=== PATIENT | female | born 1995 | race Caucasian/White ===

== ENCOUNTER → 2017-09-11 17:58 | Outpatient (CLI) | payer BC, MEDICAID, SELFPAY ==
[2017-09-15 18:44] LABS: Neisseria gonorrhoeae, NAA Negative (Negative)
== END ==
PROVIDERS: PCP Family Medicine; Visit Provider Nurse Practitioner Obstetrics & Gynecology
DX: Z72.51 High risk heterosexual behavior (principal)
CPT/HCPCS: 87491; 87591

== ENCOUNTER → 2017-10-01 15:17 | Outpatient (CLI) | payer BC, MEDICAID, SELFPAY ==
[2017-10-01 15:42] LABS: Basophils % 0.4 % (0.1-2.0); Eosinophils # 0.3 K/mm3 (0.0-0.4); Hematocrit 36.1 % (37.0-47.0); Lymphocytes # 2.3 K/mm3 (0.7-4.5); Mean Corpuscular HGB Conc 33.3 g/dL (31.8-35.4); Mean Corpuscular Hemoglobin 29.3 pg (27.0-31.2); Mean Corpuscular Volume 88.1 fl (81-99); Mean Platelet Volume 8.8 fl (7.4-10.4); Monocytes # 0.4 K/mm3 (0.1-1.0); Monocytes % 3.9 % (1.7-9.3); Neutrophils % 71.8 % (37.0-80.0); Platelet Count 259 K/mm3 (142-424); Red Cell Distribution Width 15.6 % (11.5-17.5); White Blood Count 11.2 K/mm3 (4.5-13.0)
[2017-10-01 17:21] LABS: Free Thyroxine Index 2.8 ug/dL (5.93-13.13); T4 (Thyroxine) 8.9 ug/dl (5.4-10.6); Thyroid Stimulating Hormone 1.65 uIU/ml (0.516-4.13); Triiodothryronine (T3) Uptake 32 % (31-39)
[2017-10-03 06:22] LABS: Hepatitis B Surface Antigen Negative (Negative); Hepatitis C Antibody <0.1 s/co ratio (0.0-0.9)
[2017-10-03 10:17] LABS: HIV Screen 4th Generation wRfx Non Reactive (Non Reactive)
[2017-10-03 10:32] LABS: Rapid Plasma Reagin Ab Titer Non Reactive (NonRea<1:1); Rubella Antibodies, IgG 4.27 index (Immune >0.99)
== END ==
PROVIDERS: PCP Family Medicine; Visit Provider Nurse Practitioner Obstetrics & Gynecology
DX: Z34.90 Encounter for supervision of normal pregnancy, unspecified, unspecified trimester (principal)
CPT/HCPCS: 36415; 84436; 84443; 84479; 85025; 86592; 86703; 86762; 86850; 87340; 87380; G0432

== ENCOUNTER → 2017-10-10 13:07 | Outpatient (CLI) | payer BC, MEDICAID, SELFPAY ==
--- NOTE | 2017-10-10 13:11 | US_ITS ---
US OB transvaginal HISTORY: ITS.REASON: US OB- DATES ORDERING PHYSICIAN: Aiden Chery MD PATIENT AGE: 21 years COMPARISON: None FINDINGS: An intrauterine gestational sac is present with a pole with a crown-rump length of 2.07cm correlating to gestational age of 8w5d. heart tones are present with an FHR of 178bpm's. Yolk sac is noted. The amnion and chorion have not yet fused. Adnexa: There is a 1 cm right ovarian cyst and small bilateral follicles. IMPRESSION: Live intrauterine gestation at 8 weeks 5 days as described above. Estimated due date by ultrasound is 05/17/2018
== END ==
PROVIDERS: Visit Provider Nurse Practitioner Obstetrics & Gynecology
DX: O26.841 Uterine size-date discrepancy, first trimester (principal)
CPT/HCPCS: 76830

== ENCOUNTER 2017-12-26 18:11 | Outpatient (CLI) | payer BC, MEDICAID, SELFPAY ==
[2017-12-26 18:35] LABS: Microscopic, Urine URINE MICROSCOPIC (MICROSCOPIC)
[2017-12-26 18:38] VITALS: BP 107/58; PULSE 88; RESP 18; TEMP 36.8; O2SAT 93
[2017-12-26 18:38] LABS: Appearance,Urine CLOUDY (Clear); Blood, Urine 3+ (Negative); Color,Urine AMBER (Yellow); Glucose,Urine (UA) Negative (Negative); Ketones,Urine Negative (Negative); Leukocyte Esterase,Urine Negative (Negative); Nitrate,Urine POSITIVE (Negative); PH,Urine 6.5 (5.0-8.5); Protein,Urine 2+ (Negative); Specific Gravity, Urine 1.025 (1.005-1.030)
[2017-12-26 18:43] LABS: Bilirubin,Urine Negative (Negative)
[2017-12-26 18:55] LABS: Bacteria,Urine 4+ /lpf; RBC,Urine Occasional #/hpf (0-3); WBC,Urine TNTC #/hpf (0-3)
== END 2017-12-26 19:40 | disposition home or self-care (01) ==
LOC: OBOUT 18:15 → OB 18:16
PROVIDERS: PCP Nurse Practitioner Obstetrics & Gynecology; Visit Provider Obstetrics & Gynecology
DX: O26.92 Pregnancy related conditions, unspecified, second trimester (principal); Z3A.19 19 weeks gestation of pregnancy; R10.31 Right lower quadrant pain
CPT/HCPCS: 81001; 87086; 87088; 87186

== ENCOUNTER → 2017-12-31 13:02 | Outpatient (CLI) | payer BC, MEDICAID, SELFPAY ==
--- NOTE | 2017-12-31 13:05 | US_ITS ---
US OB /maternal detail: INDICATION: ITS.REASON: US OB Complete ORDERING PHYSICIAN: Aiden Chery MD PATIENT AGE: 22 years TECHNIQUE: ultrasound transabdominal scanning. COMPARISON: No previous relevant studies. FINDINGS: Single viable intrauterine gestation. Breech position. Placenta: Anterior placenta grade 1. There is average amount fluid. The cervix appears satisfactory. Closed and measuring 3 cm in length. Complete survey performed and was unremarkable on the submitted images as in PACS. No discrete anomalies identified on survey imaging by technologist. Active fetus. Three-vessel cord with satisfactory umbilical cord insertion. 4- chamber heart noted. Survey of brain & ventricles unremarkable. Face and neck survey unremarkable. Diaphragm and chest views unremarkable. Abdomen: Both kidneys noted and unremarkable. Stomach noted and satisfactory. Spine: Survey of the spine satisfactory with no anomalies identified nor imaged. Both arms and legs noted. Amniotic Fluid: Adequate. Maternal adnexa: No significant findings. Measurements: Average ultrasound age 20w2d. Gestational Age 20w3d. Estimated due date by ultrasound age 1205/18/2018. Estimated weight 345 grams. BPD = 20w2d OFD = 20w6d HC = 19w6d AC = 20w4d FL = 20w1d Growth Percentile= 38% based on established due date of 05/17/2018 Heart Rate = 139 bpm Cerebellum = 21w3d Humerus = 21w2d HC/AC is 1.13 (1.09-1.26). CI is 75% (70-86%). FL/BPD is 69%. FL/AC is 21%. IMPRESSION: There is a single live intrauterine gestation in breech presentation. Average ultrasound age is 20 weeks and 2 days with an estimated due date of 05/18/2018. No obvious anomalies. Please see above for detail.
== END ==
PROVIDERS: Visit Provider Nurse Practitioner Obstetrics & Gynecology
DX: O26.841 Uterine size-date discrepancy, first trimester (principal)
CPT/HCPCS: 76811

== ENCOUNTER → 2018-04-14 16:32 | Outpatient (CLI) | payer BC, MEDICAID, SELFPAY | LOC: LAB 16:32 → LAB.DROPOF 04-15 09:16 | PROVIDERS: Visit Provider Nurse Practitioner Obstetrics & Gynecology | DX: Z34.90 Encounter for supervision of normal pregnancy, unspecified, unspecified trimester (principal) | CPT/HCPCS: 86403 ==

== ENCOUNTER 2018-04-28 06:38 | Outpatient (CLI) | payer BC, MEDICAID, SELFPAY ==
[2018-04-28 06:47] VITALS: BP 115/75; PULSE 105; RESP 18; TEMP 36.6; O2SAT 95; BMI 29.4
[2018-04-28 06:50] VITALS: BMI 29.9
[2018-04-28 07:02] LABS: Microscopic, Urine URINE MICROSCOPIC (MICROSCOPIC)
[2018-04-28 07:09] LABS: Appearance,Urine CLEAR (Clear); Bilirubin,Urine Negative (Negative); Blood, Urine Negative (Negative); Color,Urine YELLOW (Yellow); Glucose,Urine (UA) Negative (Negative); Ketones,Urine TRACE (Negative); Leukocyte Esterase,Urine TRACE (Negative); Nitrate,Urine Negative (Negative); PH,Urine 6.5 (5.0-8.5); Protein,Urine Negative (Negative); Urobilinogen,Urine 0.2 EU/dl (0.2)
[2018-04-28 07:20] LABS: Bacteria,Urine 1+ /lpf; Mucus,Urine 1+ /lpf
--- NOTE | 2018-04-28 09:12 | P.PN_ITS ---
Internal Medicine - PN: Subj *Date: 04/28/18 *Time: 09:11 Interval history: She is a 22-year-old 2 para 1 who is 37 weeks gestational age. She came in having regular contractions. She was placed on the monitor addressed and her contractions have now settled. She is to 3 cm 75% Station -2. Nonstress test is reactive. Her contractions have now stopped. She is resting in bed. Exam Vital signs and Labs for Last 24 Hours: Temp Pulse Resp BP Pulse Ox 97.8 F 105 H 18 115/75 95 04/28/18 06:47 04/28/18 06:47 04/28/18 06:47 04/28/18 06:47 04/28/18 06:47 Laboratory Results - last 24 hr 04/28/18 06:50: Urine Color Yellow, Urine Appearance Clear, Urine pH 6.5, Ur Specific [place] 1.020, Urine Protein Negative, Urine Glucose (UA) Negative, Urine Ketones Trace, Urine Blood Negative, Urine Nitrate Negative, Urine Bilirubin Negative, Urine Urobilinogen 0.2, Ur Leukocyte Esterase Trace, Urine RBC None, Urine WBC 3-5, Ur Squamous Epith Cells 5-10, Urine Bacteria 1+, Urine Mucus 1+ I & O for Last 24 hours: Intake & Output 04/25/18 04/26/18 04/27/18 04/28/18 11:59 11:59 11:59 11:59 Weight 164 lb - Constitutional no acute distress - *Routine HEENT Exam Head: Present: normocephalic Eye: Present: EOMI, PERRL ENT: Present: mucous membranes moist Assessment and Plan (1) False labor after 37 completed weeks of gestation Current visit: Yes Status: Acute Category: Medical Code(s): O47.1 - False labor at or after 37 completed weeks of gestation - Assessment and plan all Dx Assessment and Plan for all problems:: She was having regular contractions but she has now settled. We will plan to send her home. She will follow-up with me in 3 days time for her regular appointment.
== END 2018-04-28 09:16 | disposition home or self-care (01) ==
LOC: OBOUT 06:41 → OB 06:41
PROVIDERS: Referring Provider Nurse Practitioner Obstetrics & Gynecology; Visit Provider Obstetrics & Gynecology
DX: O47.03 False labor before 37 completed weeks of gestation, third trimester (principal); Z3A.37 37 weeks gestation of pregnancy
CPT/HCPCS: 59025; 81001

== ENCOUNTER 2018-05-06 13:03 | Inpatient (IN) ==
[2018-05-06 14:48] LABS: Basophils % 0.2 % (0.1-2.0); Eosinophils # 0.1 K/mm3 (0.0-0.4); Eosinophils % 0.5 % (0.1-12.0); Lymphocytes # 1.5 K/mm3 (0.7-4.5); Lymphocytes % 10.8 % (10-50); Mean Corpuscular HGB Conc 33.4 g/dL (31.8-35.4); Mean Corpuscular Hemoglobin 30.1 pg (27.0-31.2); Mean Corpuscular Volume 90.1 fl (81-99); Mean Platelet Volume 9.5 fl (7.4-10.4); Monocytes # 0.6 K/mm3 (0.1-1.0); Monocytes % 4.6 % (1.7-9.3); Neutrophils # 11.6 K/mm3 (1.8-7.8); Neutrophils % 83.9 % (37.0-80.0); Platelet Count 200 K/mm3 (142-424); Red Blood Count 3.67 M/mm3 (4.20-5.40); Red Cell Distribution Width 16.5 % (11.5-17.5); White Blood Count 13.9 K/mm3 (4.8-10.8)
--- NOTE | 2018-05-06 15:11 | History & Physical Report ---
OB - H&P: HPI Antepartum - History of Present Illness Chief complaint: Contraction History of present illness: She is a 22-year-old 2 para 1 who was 38+ weeks gestational age. She came in having a few contractions. She rapidly progressed to 6 cm and was admitted. - History of Present Criteria for establishing EDC:: LMP confirmed by 1st trimester US care: good care Ultrasounds: normal 1st trimester US, normal mid trimester US Obstetrical complications: none Medical complications: none - Labs Blood type: A (+) positive Rubella: nonimmune RPR/VDRL: nonreactive GBS status: positive HBsAG: negative HMH History I have reviewed the patient's past medical history: Yes Medical History: Reports:: Anxiety, Asthma, Depression Denies:: Diabetes Mellitus Type 1, Hypertension, Seizures Other Surgeries: No: Amputation: No Fractures: No - *Social History Smoking Status: Current every day smoker Tobacco Type: cigarettes Alcohol Intake: never Substance Use Type: denies use - Psychiatric History Pschychiatric History:: Reports:: Anxiety, Depression *Family Hx:: Cancer, Diabetes, Hypertension, Hyperlipidemia, Asthma Para: 1 Review of Systems - Review of Systems Review of systems:: pertinent systems reviewed and negative unless documented below Meds Home Medications Medication Instructions Recorded Confirmed Type pediatric multivitamin no.7-folic 100 mcg PO DAILY 10/01/17 05/06/18 History acid 100 mcg chewable tablet Ferrous Sulfate 325 mg PO DAILY 12/26/17 05/06/18 History raNITIdine HCl [Ranitidine HCl] 150 mg PO DAILY 05/06/18 05/06/18 History Allergies Allergy/AdvReac Type Severity Reaction Status Date / Time No Known Allergies Allergy Verified 05/01/18 11:09 OB - H&P: Exam - Physical Exam Vital signs: Temp Pulse Resp BP Pulse Ox 98.2 F 90 18 117/74 97 05/06/18 13:10 05/06/18 13:10 05/06/18 13:10 05/06/18 13:10 05/06/18 13:10 - Constitutional no acute distress - Routine HEENT Exam Head: Present: normocephalic Eye: Present: EOMI, PERRL ENT: Present: mucous membranes moist - Routine Neck Exam Present: supple, full ROM - Routine Respiratory Exam Absent: accessory muscle use (good air entry bilaterally), respiratory distress, wheezes, crackles - Routine Cardiovascular Exam Present: RRR. Absent: murmur - Routine Abdominal Exam Present: soft, normoactive bowel sounds. Absent: tenderness, distended, guarding - Routine Rectal Exam Patient deferred: visual exam, digital exam - Routine Exam Patient deferred: external exam, groin exam, perineal exam - Routine Extremities Exam Present: full ROM. Absent: cyanosis, edema - Routine Skin Exam Present: intact. Absent: cyanosis - Routine Neurological Exam Present: alert, oriented X3 - Routine Psychiatric Exam Present: normal affect OB - Results - Labs Labs: Short CBC 05/06/18 Range/Units 14:30 WBC 13.9 H (4.8-10.8) K/mm3 Hgb 11.0 L (12.2-16.2) g/dL Hct 33.0 L (37.0-47.0) % Plt Count 200 (142-424) K/mm3 OB - A/P Antepartum (1) Normal delivery at term Current visit: Yes Status: Acute - Additional Plan Planning to breastfeed?: Yes Plan: expectant management Additional Information:: She is in active labor and is admitted for delivery. She is group B Streptococcus positive and will receive IV antibiotics
--- NOTE | 2018-05-06 15:14 | Procedure Note ---
- Delivery Note Delivery Date:: 05/06/18 Delivery Time:: 14:57 Anesthesia Type: None Was labor medically induced?: No Induction method: none Gestational age (weeks): 38 delivered prior to 39 weeks?: Yes Justification for early elective delivery:: Active Labor Infant Gender: Female at 1 minute: 4 at 5 minutes: 7 Delivery Procedure:: She arrived in early labor and rapidly progressed to 6 cm. She had her membranes ruptured at full dilation and progressed rapidly. She had copious clear fluid. She delivered spontaneously a liveborn female child at 2:57 PM in the afternoon of May 06, 2018. On deliver the head the rest the infant's body delivered rapidly atraumatically. The oropharynx and nasopharynx were bulb suctioned. The cord was clamped and cut and the was then handed off to the nurses who assigned Apgars of 4 at 1 minute and 7 at 5 minutes. We then obtained cord blood as well as cord pH. She received IV oxytocin using gentle traction on the cord and counter traction on the fundus I was able to easily deliver the placenta intact. He had a normal three-vessel cord but the cord was very short. It was only about a foot long. There were no perineal or vaginal lacerations. She has a positive blood, she is rubella nonimmune and was group A streptococcus positive. She did receive 1 dose of IV antibiotics about 30 minutes before the delivery. She plans to bottlefeed. Her mobility architect is Dr. Latham. Renita mated blood loss was approximately 400 cc. Placental Delivery Description: Spontaneous
[2018-05-07 03:38] VITALS: BP 113/54
[2018-05-07 07:36] LABS: Hematocrit 31.4 % (37.0-47.0); Hemoglobin 10.4 g/dL (12.2-16.2)
--- NOTE | 2018-05-07 08:16 | Progress Note ---
Internal Medicine - PN: Subj *Date: 05/07/18 *Time: 08:15 Interval history: She is doing well this morning. She is eating and ambulating. She is bottlefeeding. Her lochia is normal. Exam Vital signs and Labs for Last 24 Hours: Temp Pulse Resp BP Pulse Ox 99.1 F 74 18 113/54 L 98 05/06/18 20:49 05/06/18 20:49 05/06/18 20:49 05/06/18 20:49 05/06/18 20:49 Laboratory Results - last 24 hr 05/06/18 14:30: WBC 13.9 H, RBC 3.67 L, Hgb 11.0 L, Hct 33.0 L, MCV 90.1, MCH 30.1, MCHC 33.4, RDW 16.5, Plt Count 200, MPV 9.5, Neut % (Auto) 83.9 H, Lymph % (Auto) 10.8, [place] % (Auto) 4.6, Eos % (Auto) 0.5, Baso % (Auto) 0.2, Neut # (Auto) 11.6 H, Lymph # (Auto) 1.5, [place] # (Auto) 0.6, Eos # (Auto) 0.1, Baso # (Auto) 0.0 05/06/18 14:30: Blood Type A Positive, Antibody Screen Negative 05/06/18 15:09: Cord ABG pH 7.37 05/07/18 06:44: Hgb 10.4 L, Hct 31.4 L I & O for Last 24 hours: Intake & Output 05/04/18 05/05/18 05/06/18 05/07/18 11:59 11:59 11:59 11:59 Weight 161 lb - Constitutional no acute distress Assessment and Plan (1) Normal delivery at term Current visit: Yes Status: Acute Category: Medical Code(s): O80 - Encounter for full-term uncomplicated delivery - Assessment and plan all Dx Assessment and Plan for all problems:: She continues to do very well. We will plan to send her home in the morning.
--- NOTE | 2018-05-08 08:12 | Discharge Summary ---
General - General Admission date:: 05/06/18 Discharge date: 05/08/18 HPI HPI: She is a 22-year-old 2 now para 2 who is 38 and 3 weeks gestational age. She arrived in active labor and was found to be 2-3 cm dilated. She rapidly rest to 6 cm and then full dilation. Hospital Course Hospital Course: She rapidly progressed to full dilation and delivered spontaneously a liveborn female child at 2:57 PM in the afternoon of May 06, 2018. The baby was a liveborn female child weighing 5 pounds 9 ounces 18-1/4 inches long. She had Apgars of 4 at 1 minute and 7 at 5 minutes. She had a very short cord. She has done well and has remained afebrile throughout her hospitalization. She is eating and drinking and ambulating. She is bottlefeeding. Her lochia is normal. She has a positive blood, she is rubella nonimmune and was group B streptococcus positive. She did receive 1 dose of IV antibiotics prior to delivery. The baby is doing well. She will receive MMR prior to discharge. She is discharged home to follow-up with me in approximately 2 weeks time. She will continue with her vitamins and iron. She was given the usual instructions with respect to limiting her activity, driving and sexual activity. Rhogam Administration: Not Indicated Objective Vital signs: Temp Pulse Resp BP Pulse Ox 99.1 F 74 18 113/54 L 98 05/06/18 20:49 05/06/18 20:49 05/06/18 20:49 05/06/18 20:49 05/06/18 20:49 no acute distress DS: Diagnosis - Discharge Diagnosis (1) Normal delivery at term Status: Acute Discharge Plan - Patient Discharge Instructions ACTIVITY: No heavy lifting DIET: continue same diet Patient Instructions: DI for Hemorrhage, DI for Labor and Delivery, Vaginal , DI for Depression - Follow up Plan Disposition: Home, Self-Retirement Medications: Home Medications Medication Instructions Recorded Confirmed Type pediatric multivitamin no.7-folic 1 tab PO DAILY 10/01/17 05/07/18 History acid 100 mcg chewable tablet Ferrous Sulfate 325 mg PO DAILY 12/26/17 05/06/18 History raNITIdine HCl [Ranitidine HCl] 150 mg PO DAILY 05/06/18 05/06/18 History Prescriptions/Medication Reconciliation: Continue pediatric multivitamin no.7-folic acid 100 mcg chewable tablet 1 tab PO DAILY Ferrous Sulfate 325 mg PO DAILY raNITIdine HCl [Ranitidine HCl] 150 mg PO DAILY
== END 2018-05-08 10:10 | disposition home or self-care (01) ==
LOC: OBOUT 13:03 → OB 13:06
PROVIDERS: ADMIT Nurse Practitioner Obstetrics & Gynecology; ATTEND Nurse Practitioner Obstetrics & Gynecology

== ENCOUNTER → 2018-10-23 12:56 | Outpatient (CLI) | payer BC, MEDICAID, SELFPAY ==
[2018-10-23 15:22] LABS: HCG,Quantitative 385 mIU/mL
== END ==
PROVIDERS: Visit Provider Nurse Practitioner Obstetrics & Gynecology
DX: Z34.90 Encounter for supervision of normal pregnancy, unspecified, unspecified trimester (principal)
CPT/HCPCS: 36415; 84702

== ENCOUNTER → 2018-11-13 12:03 | Outpatient (CLI) | payer BC, MEDICAID, SELFPAY ==
[2018-11-13 16:26] LABS: Basophils % 0.4 % (0.1-2.0); Eosinophils # 0.3 K/mm3 (0.0-0.4); Eosinophils % 2.9 % (0.1-12.0); Hematocrit 40.6 % (37.0-47.0); Lymphocytes # 1.7 K/mm3 (0.7-4.5); Lymphocytes % 17.7 % (10-50); Mean Corpuscular HGB Conc 32.1 g/dL (31.8-35.4); Mean Corpuscular Hemoglobin 28.9 pg (27.0-31.2); Mean Corpuscular Volume 90.1 fl (81-99); Mean Platelet Volume 11.9 fl (7.4-10.4); Monocytes # 0.8 K/mm3 (0.1-1.0); Monocytes % 8.4 % (1.7-9.3); Neutrophils # 6.8 K/mm3 (1.8-7.8); Neutrophils % 70.6 % (37.0-80.0); Platelet Count 207 K/mm3 (142-424); White Blood Count 9.6 K/mm3 (4.8-10.8)
[2018-11-14 17:11] LABS: HIV Screen 4th Generation wRfx Non Reactive (Non Reactive); Hepatitis B Surface Antigen Negative (Negative); Hepatitis C Antibody 0.1 s/co ratio (0.0-0.9); Rapid Plasma Reagin Ab Titer Non Reactive (NonRea<1:1); Rubella Antibodies, IgG 2.56 index (Immune >0.99)
[2018-11-17 18:10] LABS: Neisseria gonorrhoeae, NAA Negative (Negative)
== END ==
PROVIDERS: Visit Provider Nurse Practitioner Obstetrics & Gynecology
DX: Z34.90 Encounter for supervision of normal pregnancy, unspecified, unspecified trimester (principal)
CPT/HCPCS: 36415; 85025; 86592; 86703; 86762; 86850; 87340; 87380; 87491; 87591; G0432

== ENCOUNTER → 2018-11-20 14:20 | Outpatient (CLI) | payer BC, MEDICAID, SELFPAY ==
--- NOTE | 2018-11-20 14:24 | US_ITS ---
US OB transvaginal ORDERING PHYSICIAN : Aiden Chery MD PATIENT AGE: 23 years GENDER: Female HISTORY:ITS.REASON: US OB Dates COMPARISON: 10/10/2017. TECHNIQUE: Transvaginal images. FINDINGS: Within the uterine cavity there is a single gestational sac, yolk sac and pole. The crown-rump length is 1.6 cm corresponding to 8 weeks and 1 day gestational age. Heart rate is 164 bpm. Right ovary is 4.0 x 2.5 x 3.0 cm with blood flow and multiple follicles. Left ovary is 5.7 x 3.5 x 1.7 cm also with blood flow in small follicles. There is no definite cul-de-sac fluid. IMPRESSION: Single intrauterine fetus of approximately 8 weeks and 1 day gestational age. Estimated date of delivery by ultrasound is 07/01/2019.
== END ==
PROVIDERS: Visit Provider Nurse Practitioner Obstetrics & Gynecology
DX: O26.841 Uterine size-date discrepancy, first trimester (principal)
CPT/HCPCS: 76817

== ENCOUNTER → 2019-02-10 13:43 | Outpatient (CLI) | payer BC, MEDICAID, SELFPAY ==
--- NOTE | 2019-02-10 13:44 | US_ITS ---
PROCEDURE: US OB /MATERNAL DETAIL CLINICAL INDICATION: us ob complete, anatomy evaluation COMPARISON: [facility] US OB transvaginal from 11/20/2018 FINDINGS: Single viable intrauterine gestation. Cephalic position. Placenta: Anteriorplacenta grade 1. There is average amount fluid. The cervix appears satisfactory. Closed and measuring 5 cm in length. Complete survey performed and was unremarkable on the submitted images as in PACS. No discrete anomalies identified on survey imaging by technologist. Active fetus. Three-vessel cord with satisfactory umbilical cord insertion. 4- chamber heart noted. Survey of brain & ventricles Unremarkable. Face and neck survey unremarkable. Diaphragm and chest views unremarkable. Abdomen: Both kidneys noted and unremarkable. Stomach noted and satisfactory. Spine: Survey of the spine satisfactory with no anomalies identified nor imaged. Both arms and legs noted. Amniotic Fluid: Adequate. Maternal adnexa: No significant findings. Measurements: Average ultrasound age 19 weeks 4 days. Gestational Age 19.57 week Estimated due date by ultrasound age 0207/03/2019. Estimated weight 307.3 ggrams. BPD = 19 weeks 3 days OFD = 20 weeks 0 days HC = 19 weeks 0 days AC = 19 weeks 6 days FL = 19 weeks 6 days Growth Percentile= 36 percentile% Heart Rate = 146 bpm Cerebellum = 19 weeks 6 days Humerus = 19 weeks 6 days HC/AC is 1.11 CI is 0.76 FL/BPD is 0.72 FL/AC is 0.22 IMPRESSION: There is a single live fetus which is in breech presentation with an average ultrasound age of 19 weeks 4 days. Hold parameters correlate. No obvious anomalies. Please see above for detail Dictated by: Kirk Ambrocio MD 02/10/2019 17:21 Electronically signed by Kirk Ambrocio MD in [place] 02/10/2019 17:21
== END ==
PROVIDERS: Visit Provider Nurse Practitioner Obstetrics & Gynecology
DX: Z36.0 Encounter for antenatal screening for chromosomal anomalies (principal)
CPT/HCPCS: 76811

== ENCOUNTER 2019-02-27 18:59 | Outpatient (CLI) | payer BC, MEDICAID, SELFPAY ==
[2019-02-27 19:18] VITALS: BMI 26.2
[2019-02-27 19:42] LABS: Microscopic, Urine URINE MICROSCOPIC (MICROSCOPIC)
[2019-02-27 19:44] LABS: Appearance,Urine CLOUDY (Clear); Bilirubin,Urine Negative (Negative); Blood, Urine 3+ (Negative); Color,Urine YELLOW (Yellow); Glucose,Urine (UA) Negative (Negative); Ketones,Urine Negative (Negative); Leukocyte Esterase,Urine Negative (Negative); Nitrate,Urine Negative (Negative); Protein,Urine 1+ (Negative); Specific Gravity, Urine 1.025 (1.005-1.030); Urobilinogen,Urine 0.2 EU/dl (0.2)
[2019-02-27 19:57] LABS: Bacteria,Urine Trace /lpf; RBC,Urine TNTC #/hpf (0-3); Squamous Epithelial Cell,Urine 20-50 #/hpf (0-5); WBC,Urine Occasional #/hpf (0-3)
[2019-02-27 20:03] LABS: Amphetamine/Metha Screen,Urine Negative ng/mL (<1000); Barbiturates Screen,Urine Negative ng/mL (<200); Benzodiazepines Screen,Urine Negative ng/mL (<200); Cannabinoid Screen,Urine Negative ng/mL (<50); Cocaine Screen,Urine Negative ng/mL (<300); Methadone Screen,Urine Negative ng/mL (<300); Opiate Screen,Urine Negative ng/mL (<300); Phencyclidine Screen,Urine Negative ng/mL (<25)
[2019-02-27 20:04] VITALS: BP 117/81; PULSE 93; RESP 18; TEMP 36.9; O2SAT 95; BMI 26.2
== END 2019-02-27 21:40 | disposition home health service (06) ==
LOC: OBOUT 19:05 → OB 19:05
PROVIDERS: PCP Nurse Practitioner Obstetrics & Gynecology; Visit Provider Nurse Practitioner Obstetrics & Gynecology
DX: O26.892 Other specified pregnancy related conditions, second trimester (principal); Z3A.22 22 weeks gestation of pregnancy; R10.9 Unspecified abdominal pain
CPT/HCPCS: 59025; 80305; 81001

== ENCOUNTER → 2019-03-04 12:03 | Outpatient (CLI) | payer BC, MEDICAID, SELFPAY ==
[2019-03-04 12:23] LABS: Basophils # 0.1 K/mm3 (0-0.2); Basophils % 0.5 % (0.1-2.0); Eosinophils # 0.4 K/mm3 (0.0-0.4); Eosinophils % 3.2 % (0.1-12.0); Hemoglobin 11.6 g/dL (12.2-16.2); Lymphocytes # 2.1 K/mm3 (0.7-4.5); Lymphocytes % 17.5 % (10-50); Mean Corpuscular HGB Conc 31.3 g/dL (31.8-35.4); Mean Corpuscular Hemoglobin 30.9 pg (27.0-31.2); Mean Corpuscular Volume 98.8 fl (81-99); Mean Platelet Volume 9.5 fl (7.4-10.4); Monocytes # 0.6 K/mm3 (0.1-1.0); Monocytes % 5.1 % (1.7-9.3); Neutrophils # 8.9 K/mm3 (1.8-7.8); Neutrophils % 73.7 % (37.0-80.0); Platelet Count 253 K/mm3 (142-424); Red Blood Count 3.75 M/mm3 (4.20-5.40); Red Cell Distribution Width 14.1 % (11.5-17.5); White Blood Count 12.1 K/mm3 (4.8-10.8)
[2019-03-04 14:17] LABS: Free Thyroxine Index 2.8 ug/dL (5.93-13.13); T4 (Thyroxine) 11.1 ug/dl (4.7-13.3); Thyroid Stimulating Hormone 2.78 uIU/ml (0.358-3.740); Triiodothryronine (T3) Uptake 25 % (31-39)
== END ==
PROVIDERS: Visit Provider Nurse Practitioner Obstetrics & Gynecology
DX: E04.9 Nontoxic goiter, unspecified (principal); Z34.90 Encounter for supervision of normal pregnancy, unspecified, unspecified trimester
CPT/HCPCS: 36415; 84436; 84443; 84479; 85025

== ENCOUNTER → 2019-04-03 15:26 | Outpatient (CLI) | payer BC, MEDICAID, SELFPAY ==
[2019-04-03 18:46] LABS: HCG Qualitative, Serum Positive (Negative)
[2019-04-05 17:24] LABS: Rapid Plasma Reagin Ab Titer Non Reactive (NonRea<1:1)
[2019-04-05 18:30] LABS: HIV Screen 4th Generation wRfx Non Reactive (Non Reactive)
[2019-04-05 19:14] LABS: Hep A Ab, IgM Negative (Negative); Hepatitis B Core Antibody IgM Negative (Negative); Hepatitis B Surface Antigen Negative (Negative)
[2019-04-06 06:16] LABS: Hepatitis C Antibody <0.1 s/co ratio (0.0-0.9)
[2019-04-06 14:34] LABS: HSV 2 IgG, Type Spec <0.91 index (0.00-0.90)
== END ==
PROVIDERS: Visit Provider Nurse Practitioner Obstetrics & Gynecology
DX: Z34.90 Encounter for supervision of normal pregnancy, unspecified, unspecified trimester (principal); Z72.51 High risk heterosexual behavior
CPT/HCPCS: 80074; 84703; 86592; 86695; 86703; 86790; G0432

== ENCOUNTER → 2019-04-22 11:16 | Outpatient (CLI) | payer BC, MEDICAID, SELFPAY ==
[2019-04-22 13:26] LABS: Glucose,Fasting 77 mg/dL (60-105)
[2019-04-22 14:16] LABS: Glucose 1 Hour 148 mg/dL (74-106)
== END ==
PROVIDERS: Visit Provider Nurse Practitioner Obstetrics & Gynecology
DX: Z34.90 Encounter for supervision of normal pregnancy, unspecified, unspecified trimester (principal)
CPT/HCPCS: 36415; 82951

== ENCOUNTER → 2019-06-03 17:03 | Outpatient (CLI) | payer BC, MEDICAID, SELFPAY | PROVIDERS: Visit Provider Nurse Practitioner Obstetrics & Gynecology | DX: Z34.90 Encounter for supervision of normal pregnancy, unspecified, unspecified trimester (principal) | CPT/HCPCS: 86403 ==

== ENCOUNTER → 2019-06-10 15:12 | Outpatient (CLI) | payer BC, SELFPAY ==
[2019-06-10 16:07] LABS: Glucose,Fasting 75 mg/dL (60-105)
[2019-06-10 17:04] LABS: Glucose 1 Hour 157 mg/dL (74-106)
[2019-06-10 19:09] LABS: Glucose 2 Hour 126 mg/dL (74-106)
[2019-06-10 19:20] LABS: Glucose 3 Hour 86 mg/dL (74-106)
== END ==
PROVIDERS: Visit Provider Nurse Practitioner Obstetrics & Gynecology
DX: Z34.90 Encounter for supervision of normal pregnancy, unspecified, unspecified trimester (principal)
CPT/HCPCS: 36415; 82951

== ENCOUNTER → 2019-06-12 10:37 | Outpatient (CLI) | payer BC, MEDICAID, SELFPAY ==
--- NOTE | 2019-06-12 10:37 | US_ITS ---
PROCEDURE: US OB BPP W/FET-MAT S/D CLINICAL INDICATION: US OB BPP Growth- SGA COMPARISON: US OB /MATERNAL DETAIL from 02/10/2019 FINDINGS: There is a single live fetus present which is in the cephalic presentation. heart and body motion is noted. Average ultrasound age is 35 weeks and 1 day with an estimated weight 2562 g which is 8th percentile indicating small for gestational age. Measurements: Average ultrasound age 35weeks 1day. Gestational Age 35weeks 1day Estimated due date by ultrasound age 0207/16/2019. Estimated weight 2,562g BPD = 35weeks 1day OFD = 37 weeks 5 days HC = 35weeks 4days AC = 35weeks 2days FL = 34weeks 3days Growth Percentile= 8% Heart Rate = 139bpm Cerebellum = Humerus = HC/AC is 1.01 CI is 0.77 FL/BPD is 0.77 FL/AC is 0.21 Biophysical profile is 8 of 8. Amniotic fluid index is normal at 12 cm Doppler evaluation performed of the umbilical artery showing an SD ratio of 2.3 and a resistive index of 2.57. These are less than 95th percentile. The placenta is anterior in implantation and grade 2. No obvious previa or abruption IMPRESSION: Live IUP with an average ultrasound age of 35 weeks 1 day. Estimated weight is 2562 g which is 8th percentile indicating intrauterine growth restriction/small for gestational age. Biophysical profile 8 of 8 with normal amniotic fluid index and unremarkable Doppler evaluation of the umbilical artery. Grade 2 anterior placenta Dictated by: Kirk Ambrocio MD 06/12/2019 17:21 Electronically signed by Kirk Ambrocio MD in [place] 06/12/2019 17:21
== END ==
PROVIDERS: Visit Provider Nurse Practitioner Obstetrics & Gynecology
DX: O36.5990 Maternal care for other known or suspected poor fetal growth, unspecified trimester, not applicable or unspecified (principal)
CPT/HCPCS: 76811; 76819; 76820

== ENCOUNTER 2019-06-23 05:01 | Inpatient (IN) ==
[2019-06-23 06:22] LABS: Microscopic, Urine URINE MICROSCOPIC (MICROSCOPIC)
[2019-06-23 06:31] LABS: Basophils % 0.3 % (0.1-2.0); Eosinophils # 0.5 K/mm3 (0.0-0.4); Hematocrit 33.6 % (37.0-47.0); Hemoglobin 10.7 g/dL (12.2-16.2); Lymphocytes % 18.1 % (10-50); Mean Corpuscular HGB Conc 31.9 g/dL (31.8-35.4); Mean Corpuscular Volume 90.2 fl (81-99); Mean Platelet Volume 10.1 fl (7.4-10.4); Monocytes # 0.5 K/mm3 (0.1-1.0); Monocytes % 4.7 % (1.7-9.3); Neutrophils # 8.2 K/mm3 (1.8-7.8); Neutrophils % 72.9 % (37.0-80.0); Platelet Count 262 K/mm3 (142-424); Red Blood Count 3.72 M/mm3 (4.20-5.40); Red Cell Distribution Width 15.5 % (11.5-17.5); White Blood Count 11.2 K/mm3 (4.8-10.8)
[2019-06-23 06:36] LABS: Appearance,Urine SL CLOUDY (Clear); Bilirubin,Urine Negative (Negative); Blood, Urine Negative (Negative); Color,Urine YELLOW (Yellow); Glucose,Urine (UA) TRACE (Negative); Ketones,Urine Negative (Negative); Leukocyte Esterase,Urine TRACE (Negative); PH,Urine 6.5 (5.0-8.5); Protein,Urine Negative (Negative); Specific Gravity, Urine >= 1.030 (1.005-1.030); Urobilinogen,Urine 0.2 EU/dl (0.2)
[2019-06-23 06:40] LABS: Amphetamine/Metha Screen,Urine Negative ng/mL (<1000); Barbiturates Screen,Urine Negative ng/mL (<200); Benzodiazepines Screen,Urine Negative ng/mL (<200); Cannabinoid Screen,Urine Negative ng/mL (<50); Cocaine Screen,Urine Negative ng/mL (<300); Methadone Screen,Urine Negative ng/mL (<300); Opiate Screen,Urine Negative ng/mL (<300); Phencyclidine Screen,Urine Negative ng/mL (<25)
[2019-06-23 06:56] LABS: Bacteria,Urine 2+ /lpf; RBC,Urine Occasional #/hpf (0-3)
--- NOTE | 2019-06-23 08:03 | Progress Note ---
Labor Note - Subjective: Date: 06/23/19 Time: 08:02 regular contraction - Objective: NST:: Reactive Contractions:: every 2-3 minutes Cervical Dilation:: 3 Effacement:: 50% Station: -2 Membranes: artificially ruptured - Fetus: Monitoring?: Yes monitoring type:: External - Assessment: Labor progressing?: Yes Cephalopelvic disproportion?: No Patient Problems: All Active Problems (Acute) - Plan: Anesthesia for epidural?: No Continue to labor down?: Yes Plan for ?: No Continue to monitor?: Yes Start pushing?: No Comment:: I ruptured her membranes and there was clear fluid.
--- NOTE | 2019-06-23 08:05 | History & Physical Report ---
OB - H&P: HPI Antepartum - History of Present Illness Chief complaint: Oligohydramnios, small for gestational age History of present illness: She is a 23-year-old 3 para 2 who is 37+ weeks gestational age she has had a recent ultrasound that showed a small for gestational age infant as well as oligohydramnios. As result of that we have elected to deliver her at term. - History of Present Criteria for establishing EDC:: based on 2nd trimester US only Ultrasounds: normal 1st trimester US, normal mid trimester US Obstetrical complications: other Medical complications: none [facility] History I have reviewed the patient's past medical history: Yes Medical History: Reports:: Anxiety, Asthma, Depression Denies:: Diabetes Mellitus Type 1, Hypertension, Seizures *Have you ever received a pneumonia vaccine?: No *Have you received a flu vaccine this season?: No Other Surgeries: Yes: No Previous Surgery. No: Amputation: No Fractures: No - *Social History Smoking Status: Current every day smoker Tobacco Type: cigarettes Alcohol Intake: never Substance Use Type: denies use *Occupational Status:: unemployed *Travel in the last 8 weeks: None - Psychiatric History Pschychiatric History:: Reports:: Anxiety, Depression Family Hx:: Cancer, Diabetes, Hypertension, Hyperlipidemia, Asthma Para: 2 Review of Systems - Review of Systems Review of systems:: pertinent systems reviewed and negative unless documented below Meds Home Medications Medication Instructions Recorded Confirmed Type prenat.vits,heriberto,oyo-bced-hxlai 1 tab PO DAILY 11/13/18 06/23/19 History RX: Ferrous Sulfate 325 mg PO DAILY 06/23/19 06/23/19 History Allergies Allergy/AdvReac Type Severity Reaction Status Date / Time fluoxetine [From Prozac] Allergy Mild Verified 06/16/19 14:01 sertraline [From Zoloft] Allergy Mild Verified 06/16/19 14:01 citalopram Allergy Hives Verified 06/16/19 14:01 OB - H&P: Exam - Constitutional no acute distress - Routine HEENT Exam Head: Present: normocephalic Eye: Present: EOMI, PERRL ENT: Present: mucous membranes moist - Routine Neck Exam Present: supple, full ROM - Routine Respiratory Exam Absent: accessory muscle use (good air entry bilaterally), respiratory distress, wheezes, crackles - Routine Cardiovascular Exam Present: RRR. Absent: murmur - Routine Abdominal Exam Present: soft, normoactive bowel sounds. Absent: tenderness, distended, guarding - Routine Rectal Exam Patient deferred: visual exam, digital exam - Routine Exam Patient deferred: external exam, groin exam, perineal exam - Routine Extremities Exam Present: full ROM. Absent: cyanosis, edema - Routine Skin Exam Present: intact. Absent: cyanosis - Routine Neurological Exam Present: alert, oriented X3 - Routine Psychiatric Exam Present: normal affect OB - Results - Labs Labs: Short CBC 06/23/19 Range/Units 05:33 WBC 11.2 H (4.8-10.8) K/mm3 Hgb 10.7 L (12.2-16.2) g/dL Hct 33.6 L (37.0-47.0) % Plt Count 262 (142-424) K/mm3 Urine 06/23/19 Range/Units 05:15 Urine Color Yellow (Yellow) Urine Appearance Sl cloudy (Clear) Urine pH 6.5 (5.0-8.5) Ur Specific [place] >= 1.030 (1.005-1.030) Urine Protein Negative (Negative) Urine Glucose (UA) Trace (Negative) OB - A/P Antepartum (1) IUGR (intrauterine growth restriction) affecting care of mother Current visit: Yes Status: Acute (2) Oligohydramnios antepartum Current visit: Yes Status: Acute - Additional Plan Planning to breastfeed?: No Plan: induction Additional Information:: We have started her on IV oxytocin rupture membranes. We will expect a vaginal delivery.
--- NOTE | 2019-06-23 09:39 | Progress Note ---
[facility] Anesthesia Checklist - Patient Identification Patient Identification: Arm Band, Verbal (Name & ) - Structural Data Admitted From: Home Planned Operative Procedure/s: Labor epidural Consent for Planned Operative Procedure(s) Verified: Yes Verified Documents: Surgical Consent, History and Physical - Chart Verification Results Verified: CBC - Additional verifications Patient : Yes Anesthesia Reactions: No - Airway Assessment C-Spine Mobility Assessed: Yes TMJ Mobility Assessed: Yes Dentition: Poor Dentition (missing teeth) - Neurological Assessment Level of Consciousness: Awake, Alert, Appropriate, Follows Commands Hx Seizures: No Numbness or tingling in extremities: No - Anesthesia Plan Anesthesia Risk discussed: Yes Anesthesia Plan: Verified ASA Class: II Anesthesia Type: Epidural [facility] History I have reviewed the patient's past medical history: Yes Medical History: Reports:: Anxiety, Asthma, Depression, Gastroesophageal Reflux Disease(GERD) ( induced) Denies:: Diabetes Mellitus Type 1, Hypertension, Seizures *Have you ever received a pneumonia vaccine?: No *Have you received a flu vaccine this season?: No Anesthesia experience/problems:: none Other Surgeries: Yes: No Previous Surgery. No: Amputation: No Fractures: No - *Social History Smoking Status: Current every day smoker Tobacco Type: cigarettes # Packs/Day (cigarettes): 1 Alcohol Intake: never Substance Use Type: denies use *Occupational Status:: unemployed *Travel in the last 8 weeks: None - Psychiatric History Pschychiatric History:: Reports:: Anxiety, Depression Family Hx:: Cancer, Diabetes, Hypertension, Hyperlipidemia, Asthma Para: 2 Comment: pt states she is 39 weeks gestation and 3 cm dilated at time of epidural placement
--- NOTE | 2019-06-23 10:45 | Progress Note ---
Labor Note - Subjective: Date: 06/23/19 Time: 10:44 regular contraction - Objective: NST:: Reactive Contractions:: every 2-3 minutes Cervical Dilation:: 4 Effacement:: 75% Station: -2 Membranes: artificially ruptured - Fetus: Monitoring?: Yes monitoring type:: Internal - Assessment: Labor progressing?: Yes Cephalopelvic disproportion?: No Patient Problems: All Active Problems IUGR (intrauterine growth restriction) affecting care of mother (Acute) Oligohydramnios antepartum (Acute) (Acute) - Plan: Anesthesia for epidural?: Yes Continue to labor down?: Yes Plan for ?: No Continue to monitor?: Yes Start pushing?: No Comment:: She continues to do well. I inserted an IUPC and clip. She has a Wong catheter. She is progressing.
--- NOTE | 2019-06-23 10:48 | Progress Note ---
Internal Medicine - PN: Subj *Date: 06/23/19 *Time: 10:47 Exam Vital signs and Labs for Last 24 Hours: Laboratory Results - last 24 hr 06/23/19 05:15: Urine Color Yellow, Urine Appearance Sl cloudy, Urine pH 6.5, Ur Specific Kegley >= 1.030, Urine Protein Negative, Urine Glucose (UA) Trace, Urine Ketones Negative, Urine Blood Negative, Urine Nitrate Negative, Urine Bilirubin Negative, Urine Urobilinogen 0.2, Ur Leukocyte Esterase Trace, Urine RBC Occasional, Urine WBC 3-5, Ur Squamous Epith Cells 5-10, Urine Bacteria 2+ 06/23/19 05:15: Urine Opiates Screen Negative, Urine Methadone Screen Negative, Ur Barbituates Screen Negative, Ur Phencyclidine Scrn Negative, Ur Amphetamines Screen Negative, U Benzodiazepines Scrn Negative, Urine Cocaine Screen Negative, U Marijuana (THC) Screen Negative 06/23/19 05:33: WBC 11.2 H, RBC 3.72 L, Hgb 10.7 L, Hct 33.6 L, MCV 90.2, MCH 28.8, MCHC 31.9, RDW 15.5, Plt Count 262, MPV 10.1, Neut % (Auto) 72.9, Lymph % (Auto) 18.1, Mariposa % (Auto) 4.7, Eos % (Auto) 4.0, Baso % (Auto) 0.3, Neut # (Auto) 8.2 H, Lymph # (Auto) 2.0, Mariposa # (Auto) 0.5, Eos # (Auto) 0.5 H, Baso # (Auto) 0.0 06/23/19 05:33: Blood Type A Positive, Antibody Screen Negative 06/23/19 05:38: Influenza Type A Ag Negative, Influenza Type B Ag Negative I & O for Last 24 hours: Intake & Output 06/20/19 06/21/19 06/22/19 06/23/19 11:59 11:59 11:59 11:59 Weight 161 lb Assessment and Plan (1) IUGR (intrauterine growth restriction) affecting care of mother Current visit: Yes Status: Acute Category: Medical Code(s): O36.5990 - Maternal care for other known or suspected poor growth, unspecified trimester, not applicable or unspecified (2) Oligohydramnios antepartum Current visit: No Status: Inactive Category: Medical Code(s): O41.00X0 - Oligohydramnios, unspecified trimester, not applicable or unspecified
--- NOTE | 2019-06-23 13:21 | Procedure Note ---
- Delivery Note Delivery Date:: 06/23/19 Delivery Time:: 13:09 Anesthesia Type: Epidural Was labor medically induced?: Yes Induction method: per pitocin protocol Infant delivered prior to 39 weeks?: No Gender: Female at 1 minute: 8 at 5 minutes: 9 Delivery Procedure:: She is a 23-year-old 3 now para 3 who was 39 weeks gestational age. She had a small for gestational age infant and as result of that we elected to induce her labor at term. She is started on IV oxytocin had her membranes ruptured. Under labor epidural progressed to full dilation and delivered spontaneously a liveborn female child at 1:09 PM in the afternoon of June 23, 2019. On deliver the head there was a tight nuchal cord and allowed the rest of his body to deliver atraumatically. The cord was then reduced. The baby cried spontaneously. The baby was vigorous. We allowed the cord to continue to pulsate for approximately 1 minute. The cord was then doubly clamped and cut and the was placed on the mother's abdomen for further care. The nurse assigned Apgars of 8 at 1 minute and 9 at 5 minutes. We then obtained cord blood as well as cord pH. Using gentle traction on the cord countertraction on the fundus I was able to easily deliver the placenta intact. He had a normal three-vessel cord. There were no perineal or vaginal lacerations. There was minimal bleeding. She has a positive blood, she is rubella immune and was group B streptococcus negative. She plans to breast-feed. Her nail making machine tender is Dr. Mendosa. Estimated blood loss was less than 100 cc. Placental Delivery Description: Spontaneous
[2019-06-24 06:47] LABS: Hematocrit 32.3 % (37.0-47.0); Hemoglobin 10.2 g/dL (12.2-16.2)
--- NOTE | 2019-06-24 10:01 | Progress Note ---
Internal Medicine - PN: Subj *Date: 06/24/19 *Time: 09:58 Interval history: She is doing well this morning. She is eating and drinking and ambulating. She is bottlefeeding. Her lochia is normal. Exam Vital signs and Labs for Last 24 Hours: Laboratory Results - last 24 hr 06/23/19 13:15: Cord ABG pH 7.37 06/24/19 06:13: Hgb 10.2 L, Hct 32.3 L I & O for Last 24 hours: Intake & Output 06/21/19 06/22/19 06/23/19 06/24/19 11:59 11:59 11:59 11:59 Weight 161 lb Microbiology Reports for the Last 24 Hours: Microbiology 06/23/19 05:15 Urine,Clean Catch Urine Culture - Preliminary NO GROWTH AFTER 24 HOURS - Constitutional no acute distress Assessment and Plan (1) IUGR (intrauterine growth restriction) affecting care of mother Current visit: Yes Status: Acute Category: Medical Code(s): O36.5990 - Maternal care for other known or suspected poor growth, unspecified trimester, not applicable or unspecified (2) Normal delivery Current visit: Yes Status: Acute Category: Medical Code(s): O80 - Encounter for full-term uncomplicated delivery - Assessment and plan all Dx Assessment and Plan for all problems:: She is doing very well. She is bottlefeeding. Her lochia is normal. We will plan to send her home tomorrow.
[2019-06-24 21:23] VITALS: BP 124/68
--- NOTE | 2019-06-25 08:49 | Discharge Summary ---
General - General Admission date:: 06/23/19 Discharge date: 06/25/19 HPI HPI: She is a 23-year-old 3 para 2 who was 39 weeks gestational age. She had a small for gestational age infant and as result of that was brought in for induction of labor at term. Hospital Course Hospital Course: She was started on IV oxytocin and had her membranes ruptured. Under labor epidural she progressed to full dilation and delivered spontaneously a liveborn female child at 1:09 PM in the afternoon of June 23, 2019. The baby was a liveborn female child weighing 6 pounds 6 ounces and she was 18-1/2 inches long. She had Apgars of 8 at 1 minute and 9 at 5 minutes. She has done well and has remained afebrile throughout her hospitalization. She is eating and drinking and ambulating. She is bottle feeding. Her lochia is normal. She has a Rh+ blood, she is rubella immune and was group B streptococcus negative. Her red cross executive director is Dr. Mendosa. She is discharged home to follow-up with me in approximate 2 weeks time. She will continue with her vitamins and iron. She was given the usual instructions with respect to limiting her activity, driving and sexual activity. Her condition on discharge is stable. Rhogam Administration: Not Indicated Objective Vital signs: Temp Pulse Resp BP Pulse Ox 98.0 F 69 18 124/68 96 06/24/19 20:54 06/24/19 20:54 06/24/19 20:54 06/24/19 20:54 06/24/19 20:54 no acute distress DS: Diagnosis - Discharge Diagnosis (1) IUGR (intrauterine growth restriction) affecting care of mother Status: Acute (2) Normal delivery Status: Acute Discharge Plan - Patient Discharge Instructions ACTIVITY: No heavy lifting DIET: continue same diet Additional Instructions: FOLLOW UP WITH IN 2 WEEKS ON June @ 2:15 p.m. Patient Instructions: DI for Hemorrhage, Successfully, DI for Labor and Delivery, Vaginal - Follow up Plan Disposition: Home, Self-Intermediate Medications: Home Medications Medication Instructions Recorded Confirmed Type prenat.vits,heriberto,sys-mnko-cmxpc 1 tab PO DAILY 11/13/18 06/23/19 History RX: Ferrous Sulfate 325 mg PO DAILY 06/23/19 06/23/19 History Prescriptions/Medication Reconciliation: Continued prenat.vits,heriberto,qah-hdxo-gbesg 1 tab PO DAILY RX: Ferrous Sulfate 325 mg PO DAILY - Problem Reconciliation Problems Reviewed?: Yes
--- NOTE | 2019-06-25 08:53 | Discharge Summary ---
General - General Admission date:: 06/23/19 Discharge date: 06/25/19 HPI HPI: She is a 23-year-old 3 para 2 who was 39 weeks gestational age. She had a small for gestational age infant and as result of that was brought in for induction of labor at term. Hospital Course Hospital Course: She was started on IV oxytocin and had her membranes ruptured. Under labor epidural she progressed to full dilation and delivered spontaneously a liveborn male child at 5:31 PM in the evening of June 23, 2019. The baby was a liveborn male child weighing 7 pounds 14 ounces and had Apgars of 7 at 1 minute and 9 at 5 minutes. She has done well and has remained afebrile throughout her hospitalization. Her blood pressure is reasonably well controlled in the 130- 140 range over 70-80 range. She denies headache or scotomata. She has a be positive blood, she is rubella immune and was group B streptococcus negative. She is breast-feeding. She is discharged home to follow-up with me in approximately 2 weeks time. She will continue with her vitamins and iron. She will continue with her labetalol 200 mg twice daily. She was given the usual instructions with respect to limiting her activity, driving and sexual activity. Her condition on discharge is stable and improved. Rhogam Administration: Not Indicated Objective Vital signs: Temp Pulse Resp BP Pulse Ox 98.0 F 69 18 124/68 96 06/24/19 20:54 06/24/19 20:54 06/24/19 20:54 06/24/19 20:54 06/24/19 20:54 no acute distress DS: Diagnosis - Discharge Diagnosis (1) IUGR (intrauterine growth restriction) affecting care of mother Status: Acute (2) Normal delivery Status: Acute Discharge Plan - Patient Discharge Instructions ACTIVITY: No heavy lifting DIET: continue same diet Additional Instructions: FOLLOW UP WITH IN 2 WEEKS ON June @ 2:15 p.m. Patient Instructions: DI for Hemorrhage, Successfully, DI for Labor and Delivery, Vaginal - Follow up Plan Disposition: Home, Self-Penitentiary Medications: Home Medications Medication Instructions Recorded Confirmed Type prenat.vits,heriberto,dmn-cgno-qkxng 1 tab PO DAILY 11/13/18 06/23/19 History Ferrous Sulfate 325 mg PO DAILY 06/23/19 06/23/19 History Prescriptions/Medication Reconciliation: Continued prenat.vits,heriberto,put-noto-ogpqt 1 tab PO DAILY Ferrous Sulfate 325 mg PO DAILY - Problem Reconciliation Problems Reviewed?: Yes
== END 2019-06-25 10:45 | disposition home or self-care (01) | DRG 807 ==
LOC: OB 05:01
PROVIDERS: ADMIT Nurse Practitioner Obstetrics & Gynecology; ATTEND Nurse Practitioner Obstetrics & Gynecology
CPT/HCPCS: C1758

== ENCOUNTER → 2019-11-06 09:30 | Outpatient (CLI) | payer BC, OTHER, SELFPAY ==
--- NOTE | 2019-11-06 09:30 | US_ITS ---
PROCEDURE: US ABDOMEN LIMITED CLINICAL INDICATION: RUQ pain Right upper quadrant pain with nausea and vomiting COMPARISON: No exams were available for comparison FINDINGS: PANCREAS: Unremarkable. No obvious mass or abnormal fluid collection. No ductal dilatation LIVER: No focal liver lesions demonstrated. Homogeneous echogenicity. No intrahepatic biliary ductal dilatation evident. There is appropriate direction of blood flow within a non dilated portal vein RIGHT KIDNEY: Unremarkable. Normal size and echogenicity. No hydronephrosis GALLBLADDER: There is mild thickening of the gallbladder wall at 4 mm. Scattered small foci of increased echogenicity area is noted in the gallbladder may be due to sludge.. There may also be some tiny stones in this sludge with some shadowing noted. There does appear to be a stone in the neck of the gallbladder. Common bile duct is normal at 3 mm. IMPRESSION: Cholelithiasis with a stone in the region of the neck of the gallbladder with thickened gallbladder wall with sludge and tiny stones Dictated by: Kirk Ambrocio MD 11/06/2019 15:59 Electronically signed by Kirk Ambrocio MD in [place] 11/06/2019 15:59
== END ==
PROVIDERS: PCP Physician Assistant; Visit Provider Physician Assistant
DX: R10.11 Right upper quadrant pain (principal)
CPT/HCPCS: 76705

== ENCOUNTER 2019-11-07 13:18 | Emergency (ER) | payer BC, OTHER, SELFPAY ==
[2019-11-07 13:20] VITALS: BP 113/74; PULSE 81; RESP 19; TEMP 36.9; O2SAT 100; BMI 27.8
--- NOTE | 2019-11-07 13:39 | HMH.EDUTC ---
[facility] Disposition Clinical Impression: Sore throat Disposition: Home, Self-Care Condition on Discharge: Good Instructions: Sore Throat, Cough, DI for Cough -- Adult, Preventing the Spread of Coronavirus Discharge Instructions Additional Instructions: *Monitor Temp, Over the counter Motrin or Tylenol as directed/as needed Tylenol every 4 hours and Motrin every 6 hours (as long as your family doctor has told you that you can take it) for fever or pain. and straight to ER if unable to lower temp less than 101.0 after medication given *Warm salt water gargles may help to soothe the throat *Throat Lozenges *Warm fluids like tea with honey may help to soothe the throat *Sleep elevated *Humidifier/Vaporizer Your throat swab was sent for culture. Those results are typically sent to your primary care. Be sure to follow up in 2-3 days with your family doctor/primary care physician if no improvement so they can review those result and treat if necessary. If you don?t have a primary care doctor, I recommend you get one but in the mean time, you will have to return to a walk in clinic Follow up IMMEDIATELY for new or worsening symptoms or no Noticeable improvement over the next 48-72 hours. 911 for difficulty breathing or swallowing You are not allowed to work until you have a negative COVID19 test, you must go home and self quarantine away from your family and children, No PUBLIC outings it is best to have your children stay somewhere else if possible. If your test is positive you cannot return to work until you have a negative test Follow up with family doctor if needed You was given handout for instructions for Quarantining Follow those instructions, Call back to [facility] tomorrow for your results Referrals: Colleen Walls PA [Primary Care Provider] - As needed Forms: Work/School Release Time of Disposition: 14:44 Medical Decision Making - Hang Inquiry Pt receiving controlled substance: No Hang was queried for this patient: No Vital Signs: 11/07/19 13:20 Temperature 98.4 F Temperature Source Oral Pulse Rate [Radial] 81 Respiratory Rate 19 Blood Pressure [Right Arm] 113/74 Blood Pressure Mean [Right Arm] 87 Blood Pressure Source [Right Arm] Automatic Cuff Blood Pressure Position [Right Arm] Sitting 02 Sat by Pulse Oximetry 100 Oxygen Delivery Method Room Air - Lab Data Lab Results 11/07/19 14:08: SARS-CoV-2 IgG Ab (Rapid) Negative, SARS-CoV-2 IgM Ab (Rapid) Negative 11/07/19 14:44: Strep Scn Rapid Clinic Negative Orders (Tests/Meds): ORDERS Category Date Time Status SARS-CoV-2, [facility] ([place]) Stat Lab 11/07/19 14:08 Received Strep Screen Confirmation Stat Micro 11/07/19 14:44 Received - Reevaluation(s) Time: 14:44 Reevaluation #1: Patient resting in room awaiting lab test results will monitor [facility] HPI - General Stated complaint: cOVID TEST Time Seen by Provider: 11/07/19 13:39 Mode of Arrival: Ambulatory Source of Information: Patient Limitations: No Limitations Description of Symptoms (Recalled from Triage Doc. 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
[2019-11-07 14:46] LABS: UTC Strep Screen (Rapid) Negative (Negative)
[2019-11-07 14:47] LABS: Coronavirus 19 IgG Antibody Negative (Negative); Coronavirus 19 IgM Antibody Negative (Negative)
[2019-11-07 14:56] VITALS: BP 113/74; PULSE 81; RESP 19; TEMP 36.9; O2SAT 100
[2019-11-08 18:26] LABS: Covid-19 Nasal PCR Sendout UK NOT DETECTED
== END 2019-11-07 14:57 | disposition home or self-care (01) ==
PROVIDERS: Emergency Provider Nurse Practitioner; PCP Physician Assistant
DX: Z20.828 Contact with and (suspected) exposure to other viral communicable diseases (principal); R05 Cough; J02.9 Acute pharyngitis, unspecified; F41.8 Other specified anxiety disorders; K21.9 Gastro-esophageal reflux disease without esophagitis; J45.909 Unspecified asthma, uncomplicated; F17.210 Nicotine dependence, cigarettes, uncomplicated
CPT/HCPCS: 86328; 87880; 99202; U0003

== ENCOUNTER → 2019-11-19 15:30 | Outpatient (CLI) | payer BC, OTHER, SELFPAY ==
[2019-11-19 15:49] LABS: Urine Pregnancy, HCG Qual. Negative (Negative)
[2019-11-19 15:50] LABS: Basophils # 0.1 K/mm3 (0-0.2); Eosinophils # 0.5 K/mm3 (0.0-0.4); Eosinophils % 4.9 % (0.1-12.0); Hemoglobin 12.5 g/dL (12.2-16.2); Mean Corpuscular Hemoglobin 29.3 pg (27.0-31.2); Mean Corpuscular Volume 91.8 fl (81-99); Mean Platelet Volume 9.6 fl (7.4-10.4); Monocytes # 0.4 K/mm3 (0.1-1.0); Monocytes % 4.3 % (1.7-9.3); Neutrophils # 7.1 K/mm3 (1.8-7.8); Neutrophils % 69.8 % (37.0-80.0); Platelet Count 232 K/mm3 (142-424); Red Blood Count 4.25 M/mm3 (4.20-5.40); Red Cell Distribution Width 14.2 % (11.5-17.5); White Blood Count 10.2 K/mm3 (4.8-10.8)
[2019-11-19 16:38] LABS: Coronavirus 19 IgG Antibody Negative (Negative); Coronavirus 19 IgM Antibody Negative (Negative)
[2019-11-19 16:47] LABS: Chloride 106 mmol/L (98-107)
[2019-11-19 16:48] LABS: Potassium 4.3 mmoL/L (3.5-5.1); Sodium 140 mmol/L (136-145)
[2019-11-19 16:50] LABS: Alanine Aminotransferase 24 U/L (12-78); Alkaline Phosphatase 76 U/L (38-126); Anion Gap 10.3 mEq/L (5-15); Aspartate Amino Transferase 23 U/L (14-36); Bilirubin,Total 0.3 mg/dl (0.2-1.3); Blood Urea Nitrogen 12 mg/dl (7-17); Carbon Dioxide 28 mmol/L (22.0-30.0); Estimated Glomerular Filt Rate 89 ml/min (>60); GFR (African American) 108 ML/MIN (>60)
[2019-11-19 16:51] LABS: Albumin Level 4.2 g/dl (3.5-5.0); Albumin/Globulin Ratio 1.6 (1.1-1.8); Calcium 9.2 mg/dl (8.4-10.2); Globulin 2.6 g/dL (1.3-3.2); Glucose 87 mg/dl (74-100); Total Protein,Serum 6.8 g/dl (6.3-8.2)
== END ==
PROVIDERS: Visit Provider Surgery
DX: Z01.818 Encounter for other preprocedural examination (principal); K80.20 Calculus of gallbladder without cholecystitis without obstruction
CPT/HCPCS: 36415; 80053; 81025; 85025; 86328

== ENCOUNTER 2019-11-20 10:35 | Day surgery (SDC) | payer BC, OTHER, SELFPAY ==
[2019-11-18 12:32] VITALS: BMI 28.0
--- NOTE | 2019-11-18 15:03 | SUR.PREOP ---
11/18/2019 @ 1500--PHONE CALL MADE TO PATIENT. PATIENT UNDERSTANDS THAT LAB WORK AND COVID TESTING NEEDS TO BE COMPLETED BEFORE 4 ON 11/19/2019. PATIENT UNDERSTANDS IF LAB WORK AND COVID-19 TESTS ARE NOT COMPLETED BY 12PM ON THAT DATE, THE SURGERY SCHEDULED WILL BE CANCELLED AND RESCHEDULED FOR ANOTHER TIME.
[2019-11-20] VITALS (13 sets, daily range): BP systolic 100–138; BP diastolic 53–89; PULSE 53–96; RESP 12–24; TEMP 36.6–43; O2SAT 88–98
--- NOTE | 2019-11-20 12:18 | P.OP_ITS ---
Date of procedure: 11/20/19 Pre-op Diagnosis:: Chronic calculus cholecystitis Post-op Diagnosis:: Same Procedure performed:: Laparoscopic cholecystectomy Surgeon:: Wilbert Thao MD LEGAL ACTIVITY ADJUDICATOR:: Diego Thomas Anesthesia: GETA Estimated blood loss (mL): 15 Operative findings:: Multiple large stones with particularly large stone in the neck of gallbladder Fairly severe thickening around infundibulum Operative note:: After informed consent was obtained, the patient was taken to the operating room and placed in the supine position. General anesthesia was induced and the abdomen was prepped and draped in a sterile fashion. After infiltration with local anesthetic an infraumbilical incision was made. A Veress needle was placed in position. The abdomen was insufflated. A 5 mm optical trocar was placed in position. Under direct visualization, a 12 mm trocar was placed in the subxiphoid position and 2 additional 5 mm trocars were placed in the right upper quadrant. The gallbladder was elevated up and over the liver margin. Large stones noted. A very large stone within the neck of the gallbladder was noted. Fairly severe thickening of the infundibulum noted. The tissue around the cystic duct and artery was carefully dissected. The cystic artery was fairly large with clear projection into the gallbladder. Careful dissection around the artery was completed bluntly and 2 clips were placed proximally before transection with harmonic reji. The cystic duct was then freed from surrounding tissue. 3 clips were placed proximally and the duct was transected with harmonic reji. Harmonic reji were then utilized to dissect the gallbladder away from the liver margin with careful attention to the control of the cystic artery. The gallbladder was placed in a retrieval bag and removed through the subxiphoid trocar site. The right upper quadrant was thoroughly irrigated. No active bleeding or bile leak was noted. Fascia at the subxiphoid trocar site was reapproximated utilizing 0 Ethibond. The remaining trocars were removed. All wounds were irrigated and skin was closed with 4-0 Monocryl in a subcuticular fashion. Steri-Strips were applied. The patient's anesthetic agents were reversed and extubation was completed prior to transfer to recovery in stable condition. Condition: stable Disposition: PACU Specimens:: Gallbladder and contents Complications:: No immediate
--- NOTE | 2019-11-20 12:30 | P.PN_ITS ---
[facility] Anesthesia Checklist - Structural Data Admitted From: Home Planned Operative Procedure/s: deandre martin Consent for Planned Operative Procedure(s) Verified: Yes - Additional verifications Anesthesia Reactions: No Hx Blood Transfusions: No Blood Transfusion Reaction: No - Airway Assessment C-Spine Mobility Assessed: Yes TMJ Mobility Assessed: Yes Dentition: Good Dentition - Neurological Assessment Level of Consciousness: Awake, Alert, Appropriate - Anesthesia Plan Anesthesia Risk discussed: Yes Anesthesia Plan: Verified ASA Class: II Anesthesia Type: General [facility] History I have reviewed the patient's past medical history: Yes Medical History: Reports:: Anxiety, Asthma, Depression, Gastroesophageal Reflux Disease(GERD) Denies:: Cancer, Diabetes Mellitus Type 1, Diabetes Mellitus Type 2, Hypertension, Internal Pacemaker, MRSA, Seizures *Have you ever received a pneumonia vaccine?: No *Have you received a flu vaccine this season?: No Other Medical History: Denies: Blood Transfusion Reaction Anesthesia experience/problems:: none Other Surgeries: Yes: No Previous Surgery. No: , Pacemaker Amputation: No Fractures: No - *Social History Educational Level: Completed High School Smoking Status: Current every day smoker Tobacco Type: cigarettes # Packs/Day (cigarettes): 1 Alcohol Intake: never Alcohol Intake Frequency:: holidays/special occasions only Substance Use Type: denies use *Occupational Status:: employed Housing: house Household Members: children *Travel in the last 8 weeks: None - Psychiatric History Pschychiatric History:: Reports:: Anxiety, Depression Family Hx:: Cancer, Diabetes, Hypertension, Hyperlipidemia, Asthma
--- NOTE | 2019-11-20 12:30 | P.PN_ITS ---
[facility] Anesthesia Record Part I Intake, IV Amount: 1,500 Estimated blood loss (mL): 0 Urine output (mL): 0 Blood Pressure: 137/89 SaO2: 96 Pulse Rate: 94 Respiratory Rate: 12 Temperature: 98.9 F Patient is:: Awake, Stable Stable to PACU at:: 12:35
--- NOTE | 2019-11-25 09:46 | HMH.ANESII ---
[facility] Anesthesia Record Part II Discharge Time: 12:55 Destination: [facility] PACU nurse assessment reviewed?: Yes Patient Condition:: Good Anesthesia Complications:: None Swallowing reflex intact?: Yes Cyanosis?: No Blood Pressure: 124/72 Pulse Rate: 78 Temperature: 98.4 F Mental Status: Alert & Oriented Pain level:: 4 Nausea and/or vomitting:: None Intake, IV Amount: 1,000
[2019-11-25 09:47] VITALS: BP 124/72; PULSE 78; TEMP 36.9
== END 2019-11-20 14:07 | disposition home or self-care (01) ==
LOC: OR 10:37
PROVIDERS: PCP Physician Assistant; Visit Provider Surgery
PROC: 0FT44ZZ Resection of Gallbladder, Percutaneous Endoscopic Approach (ICD-10-PCS; CPT 47562; principal; 2019-11-20 11:30)
DX: K80.10 Calculus of gallbladder with chronic cholecystitis without obstruction (principal); J45.909 Unspecified asthma, uncomplicated; K21.9 Gastro-esophageal reflux disease without esophagitis; F41.9 Anxiety disorder, unspecified; F32.9 Major depressive disorder, single episode, unspecified; Z79.899 Other long term (current) drug therapy; Z88.8 Allergy status to other drugs, medicaments and biological substances; Z80.9 Family history of malignant neoplasm, unspecified; Z82.49 Family history of ischemic heart disease and other diseases of the circulatory system; Z83.438 Family history of other disorder of lipoprotein metabolism and other lipidemia; Z82.5 Family history of asthma and other chronic lower respiratory diseases; Z72.0 Tobacco use
CPT/HCPCS: 47562; 96374; J2405; J2710

== ENCOUNTER 2020-01-08 18:52 | Emergency (ER) | payer BC, OTHER, SELFPAY ==
--- NOTE | 2020-01-08 19:42 | HMH.EDUTC ---
[facility] Disposition Clinical Impression: Sinusitis Qualifiers: Sinusitis location: unspecified location Chronicity: acute Recurrence: non-recurrent Qualified Code(s): J01.90 - Acute sinusitis, unspecified Disposition: Home, Self-Care Condition on Discharge: Good Instructions: Sinusitis, DI for Sinusitis Additional Instructions: Drink plenty of fluids. Take tylenol or ibuprofen for pain or fever. Take the medications as directed. Follow up with your regular doctor. GO TO THE ER FOR ANY WORSENING SYMPTOMS Prescriptions: Brompheniramine/Pseudoephed/Dm [Bromfed Dm Cough Syrup] 5 ml PO Q6HP PRN #240 syrup PRN Reason: Cough Transmission Status: Received by [facility] predniSONE [Deltasone 10mg tablet] 10 mg PO BID 3 Days #6 tab Transmission Status: Received by [facility] Azithromycin [Z-Edvin 250mg Tab*] 250 mg PO UD DOSE PK #6 tab Transmission Status: Received by [facility] Referrals: Colleen Walls PA [Primary Care Provider] - Time of Disposition: 20:01 Medical Decision Making - Medical Records Medical records reviewed: No: I reviewed the patient's medical records. - Hang Inquiry Pt receiving controlled substance: No Vital Signs: 01/08/20 19:57 01/08/20 20:05 Temperature 98.2 F 98.2 F Temperature Source Oral Pulse Rate 85 Pulse Rate [Right Brachial] 85 Respiratory Rate 20 20 Blood Pressure 128/70 Blood Pressure [Right Arm] 128/70 Blood Pressure Mean [Right Arm] 89 Blood Pressure Source [Right Arm] Automatic Cuff Blood Pressure Position [Right Arm] Sitting 02 Sat by Pulse Oximetry 98 Oxygen Delivery Method Room Air [facility] [place] HPI - General Stated complaint: snotty nose congestion weakness tired Time Seen by Provider: 01/08/20 19:42 - History of Present Illness Provider Complaint: She c/o 5 days of worsening sinus congestion and sinus pressure. She has a history of getting sinus infections kind of frequently. She denies any known exposure to COVID-19. - Related Data Previous Rx's Medication Instructions Recorded Azithromycin [Z-Edvin 250mg Tab*] 250 mg PO UD DOSE PK #6 tab 01/08/20 Brompheniramine/Pseudoephed/Dm 5 ml PO Q6HP PRN #240 syrup 01/08/20 [Bromfed Dm Cough Syrup] predniSONE [Deltasone 10mg tablet] 10 mg PO BID 3 Days #6 tab 01/08/20 Allergies Allergy/AdvReac Type Severity Reaction Status Date / Time fluoxetine [From Prozac] Allergy Mild Verified 12/30/19 14:03 sertraline [From Zoloft] Allergy Mild Verified 12/30/19 14:03 citalopram Allergy Hives Verified 12/30/19 14:03 [facility] History - Hepatitis A Screen Attestation statement:: This patient has been screened for Hepatitis A risk factors. I have reviewed the patient's past medical history: Yes Medical History: Reports:: Anxiety, Asthma, Depression, Gastroesophageal Reflux Disease(GERD) Denies:: Cancer, Diabetes Mellitus Type 1, Diabetes Mellitus Type 2, Hypertension, Internal Pacemaker, MRSA, Seizures Other Medical History: Denies: Blood Transfusion Reaction Comment: PARAGARD IUD Other Surgeries: Yes: No Previous Surgery. No: , Pacemaker Amputation: No Fractures: No - Social History Smoking Status: Current every day smoker Tobacco Type: cigarettes # Packs/Day (cigarettes): 1 Alcohol Intake: never Alcohol Intake Frequency:: holidays/special occasions only Substance Use Type: denies use Occupational Status: employed Housing: house Household Members: children - Psychiatric History Pschychiatric History:: Reports:: Anxiety, Depression Family Hx:: Cancer, Diabetes, Hypertension, Hyperlipidemia, Asthma Comment: pt states she is 39 weeks gestation and 3 cm dilated at time of epidural placement ROS Obtained: Yes All systems reviewed & no additional complaints - Constitutional Constitutional: Denies chills, Denies fever(s), Reports poor appetite, Reports malaise - Eyes Eyes: Denies eye discharge - ENT Ears, Nose, Mouth, and
[2020-01-08 19:57] VITALS: BP 128/70; PULSE 85; RESP 20; TEMP 36.8; O2SAT 98; BMI 28.5
[2020-01-08 20:05] VITALS: BP 128/70; PULSE 85; RESP 20; TEMP 36.8; O2SAT 98
== END 2020-01-08 20:08 | disposition home or self-care (01) ==
PROVIDERS: Emergency Provider Nurse Practitioner Family; PCP Physician Assistant
DX: J01.90 Acute sinusitis, unspecified (principal); F41.8 Other specified anxiety disorders; K21.9 Gastro-esophageal reflux disease without esophagitis; J45.909 Unspecified asthma, uncomplicated; F17.210 Nicotine dependence, cigarettes, uncomplicated; Z88.8 Allergy status to other drugs, medicaments and biological substances
CPT/HCPCS: 99201

== ENCOUNTER 2020-03-07 09:11 | Emergency (ER) | payer BC, OTHER, SELFPAY ==
--- NOTE | 2020-03-07 09:15 | HMH.EDGENADL ---
ED Disposition Clinical Impression: Vaginal bleeding affecting early Disposition: Home, Self-Care Condition on Discharge: Good Instructions: DI for Acute Abdomen Additional Instructions: Follow-up with [facility]. Immediately return if any worsening bleeding, abdominal pain, nausea/vomiting, lightheadedness/syncope, or other new concerning symptoms. Referrals: Colleen Walls PA [Primary Care Provider] - - Critical Care Critical Care Time: No Attestation: On , the high probability of a clinically significant, sudden or life threatening deterioration of the following system(s) required my full and direct attention, intervention and personal management. The time I documented below is in addition to time spent performing reported procedures but includes the following listed in this critical care notation. Medical Decision Making - Medical Records Medical records reviewed: Yes: I reviewed the patient's medical records. - Hang Inquiry Pt receiving controlled substance: No Vital Signs: 03/07/20 09:27 03/07/20 10:22 Temperature 98.9 F Temperature Source Oral Pulse Rate [Right Radial] 85 63 Respiratory Rate 18 20 Blood Pressure [Right Arm] 139/80 126/87 Blood Pressure Mean [Right Arm] 99 100 Blood Pressure Source [Right Arm] Automatic Cuff Blood Pressure Position [Right Arm] Sitting 02 Sat by Pulse Oximetry 98 97 Oxygen Delivery Method Room Air - Lab Data Lab Results 03/07/20 09:32: Urine Color Yellow, Urine Appearance Clear, Urine pH 7.0, Ur Specific [place] 1.010, Urine Protein Negative, Urine Glucose (UA) Negative, Urine Ketones Negative, Urine Blood 3+, Urine Nitrate Negative, Urine Bilirubin Negative, Urine Urobilinogen 0.2, Ur Leukocyte Esterase Negative, Urine RBC 10-20, Urine WBC 3-5, Ur Squamous Epith Cells 3-5 03/07/20 09:40: WBC 7.7, RBC 4.45, Hgb 13.0, Hct 41.0, MCV 92.2, MCH 29.3, MCHC 31.8, RDW 14.4, Plt Count 254, MPV 9.2, Neut % (Auto) 72.9, Lymph % (Auto) 17.9, [place] % (Auto) 5.6, Eos % (Auto) 2.9, Baso % (Auto) 0.7, Neut # (Auto) 5.6, Lymph # (Auto) 1.4, [place] # (Auto) 0.4, Eos # (Auto) 0.2, Baso # (Auto) 0.1 03/07/20 09:40: Sodium 139, Potassium 4.1, Chloride 105, Carbon Dioxide 27, Anion Gap 11.1, BUN 13, Creatinine 0.70, Estimated Creat Clear 139, Estimated GFR 104, Est GFR ( Amer) 125, Glucose 107 H, Calcium 9.7, HCG, Quant < 2 03/07/20 09:40: Serum HCG, Qual Negative 03/07/20 09:40: Blood Type A Positive Result diagrams: 03/07/20 09:40 03/07/20 09:40 Orders (Tests/Meds): ORDERS Category Date Time Status US OB <= 14 weeks fetus Stat Exams 03/07/20 10:37 Ordered Medical Decision Narrative: Patient presents in suspected first trimester with vaginal bleeding and abdominal pain with lightheadedness. She does have history of miscarriage. At this time differential diagnosis does include ectopic versus versus cystitis. Speculum/bimanual exam performed and cervical os does appear to be closed with no active bleeding but there is scant blood noted in the vaginal vault. At this time, work-up will be initiated to ensure no anemia secondary to blood loss which could be contributed patient's lightheadedness. Vital signs all within normal limits. She is well-appearing alert and oriented x3. Blood type will also be obtained to ensure no reason for alloimmunization and need for RhoGam. Also, quantitative and qualitative hCG will be obtained to confirm and to try to determine how far patient is in her first trimester. Urinalysis will also be obtained to ensure no cystitis or signs of genitourinary infections. Patient is Rh+. Hemoglobin within normal limits. No signs of cystitis on urinalysis but there is blood in the urine consistent with vaginal bleeding. Ultrasound demonstrates no intrauterine or findings consistent with ectopic. Quantitative hCG basically undetectable and test also negative. Unfortunately,
[2020-03-07 09:27] VITALS: BP 139/80; PULSE 85; RESP 18; TEMP 37.2; O2SAT 98; BMI 28.3
[2020-03-07 09:37] LABS: Microscopic, Urine URINE MICROSCOPIC (MICROSCOPIC)
[2020-03-07 09:38] LABS: Appearance,Urine CLEAR (Clear); Bilirubin,Urine Negative (Negative); Blood, Urine 3+ (Negative); Color,Urine YELLOW (Yellow); Glucose,Urine (UA) Negative (Negative); Ketones,Urine Negative (Negative); Leukocyte Esterase,Urine Negative (Negative); Nitrate,Urine Negative (Negative); Protein,Urine Negative (Negative); Urobilinogen,Urine 0.2 EU/dl (0.2)
[2020-03-07 09:48] LABS: Basophils # 0.1 K/mm3 (0-0.2); Basophils % 0.7 % (0.1-2.0); Eosinophils # 0.2 K/mm3 (0.0-0.4); Eosinophils % 2.9 % (0.1-12.0); Lymphocytes # 1.4 K/mm3 (0.7-4.5); Lymphocytes % 17.9 % (10-50); Mean Corpuscular HGB Conc 31.8 g/dL (31.8-35.4); Mean Corpuscular Hemoglobin 29.3 pg (27.0-31.2); Mean Corpuscular Volume 92.2 fl (81-99); Mean Platelet Volume 9.2 fl (7.4-10.4); Monocytes # 0.4 K/mm3 (0.1-1.0); Monocytes % 5.6 % (1.7-9.3); Neutrophils # 5.6 K/mm3 (1.8-7.8); Neutrophils % 72.9 % (37.0-80.0); Platelet Count 254 K/mm3 (142-424); Red Blood Count 4.45 M/mm3 (4.20-5.40); Red Cell Distribution Width 14.4 % (11.5-17.5); White Blood Count 7.7 K/mm3 (4.8-10.8)
[2020-03-07 09:53] LABS: Chloride 105 mmol/L (98-107); Potassium 4.1 mmoL/L (3.5-5.1); Sodium 139 mmol/L (136-145)
[2020-03-07 09:56] LABS: Anion Gap 11.1 mEq/L (5-15); Blood Urea Nitrogen 13 mg/dl (7-17); Carbon Dioxide 27 mmol/L (22.0-30.0); Creatinine Clearance Estimated 139 mL/min (50-200); Estimated Glomerular Filt Rate 104 ml/min (>60); GFR (African American) 125 ML/MIN (>60); HCG Qualitative, Serum Negative (Negative)
[2020-03-07 09:57] LABS: Calcium 9.7 mg/dl (8.4-10.2); Glucose 107 mg/dl (74-100)
--- NOTE | 2020-03-07 10:00 | PC.NURSE ---
jason emt-p at bedside to assist er provider in pelvic exam.
[2020-03-07 10:17] LABS: HCG,Quantitative < 2 mIU/ml (0-5.42)
[2020-03-07 10:22] VITALS: BP 126/87; PULSE 63; RESP 20; O2SAT 97
--- NOTE | 2020-03-07 10:37 | US_ITS ---
PROCEDURE: US OB <= 14 WEEKS FETUS CLINICAL INDICATION: + preg test days w/abd pain downtrending hcg COMPARISON: US US OB BPP W/FET-MAT S/D from 06/12/2019 FINDINGS: Small amount fluid is present in the cul-de-sac. No intrauterine gestational sac is evident. The endometrium is 9 mm in thickness. There are small bilateral ovarian follicles measuring up to 2 cm on the right. IMPRESSION: No intrauterine gestational sac evident. Dictated by: Kirk Ambrocio MD 03/07/2020 11:51 Kirk Ambrocio MD in [place] 03/07/2020 11:51
[2020-03-07 11:41] VITALS: BP 134/85; PULSE 87; RESP 17; TEMP 36.8; O2SAT 100
== END 2020-03-07 11:46 | disposition home or self-care (01) ==
PROVIDERS: Emergency Provider Emergency Medicine; PCP Physician Assistant
DX: O20.9 Hemorrhage in early pregnancy, unspecified (principal); K21.9 Gastro-esophageal reflux disease without esophagitis; F41.8 Other specified anxiety disorders; F17.210 Nicotine dependence, cigarettes, uncomplicated
CPT/HCPCS: 36415; 76801; 80048; 81001; 84702; 84703; 85025; 86900; 86901; 99283

== ENCOUNTER → 2020-05-17 11:30 | Outpatient (CLI) | payer BC, OTHER, SELFPAY ==
[2020-05-17 12:34] LABS: Basophils # 0.1 K/mm3 (0-0.2); Basophils % 0.7 % (0.1-2.0); Eosinophils # 0.3 K/mm3 (0.0-0.4); Eosinophils % 3.5 % (0.1-12.0); Hematocrit 41.4 % (37.0-47.0); Hemoglobin 13.5 g/dL (12.2-16.2); Lymphocytes # 1.8 K/mm3 (0.7-4.5); Lymphocytes % 18.7 % (10-50); Mean Corpuscular HGB Conc 32.6 g/dL (31.8-35.4); Mean Corpuscular Hemoglobin 29.3 pg (27.0-31.2); Mean Corpuscular Volume 89.9 fl (81-99); Mean Platelet Volume 10.2 fl (7.4-10.4); Monocytes # 0.3 K/mm3 (0.1-1.0); Monocytes % 3.6 % (1.7-9.3); Neutrophils % 73.5 % (37.0-80.0); Platelet Count 209 K/mm3 (142-424); Red Blood Count 4.61 M/mm3 (4.20-5.40); Red Cell Distribution Width 15.1 % (11.5-17.5); White Blood Count 9.5 K/mm3 (4.8-10.8)
[2020-05-18 12:04] LABS: HIV Screen 4th Generation wRfx Non Reactive (Non Reactive); Hepatitis B Surface Antigen Negative (Negative); Hepatitis C Antibody <0.1 s/co ratio (0.0-0.9); Rapid Plasma Reagin Ab Titer Non Reactive (NonRea<1:1); Rubella Antibodies, IgG 3.99 index (Immune >0.99)
== END ==
PROVIDERS: Visit Provider Nurse Practitioner Obstetrics & Gynecology
DX: Z34.90 Encounter for supervision of normal pregnancy, unspecified, unspecified trimester (principal); Z3A.01 Less than 8 weeks gestation of pregnancy
CPT/HCPCS: 36415; 85025; 86592; 86703; 86762; 86850; 87340; 87380; G0432

== ENCOUNTER → 2020-05-24 10:58 | Outpatient (CLI) | payer BC, OTHER, SELFPAY ==
--- NOTE | 2020-05-24 11:05 | US_ITS ---
PROCEDURE: US OB <= 14 WEEKS FETUS Referring Doctor: Aiden Chery Patient Age:24Y CLINICAL INDICATION: US OB before 14 wks -DATES COMPARISON: US US OB <= 14 WEEKS FETUS from 03/07/2020 FINDINGS: An intrauterine gestational sac is present with a pole with a crown-rump length of 0.94cm correlating to gestational age of 7weeks. heart tones are present with an FHR of 133bpm. Yolk sac is noted. The amnion and chorion Have not yet fused. . Yolk sac equal 4.8 mm CRL equal 9.4 mm = 7 weeks 0 day Thus AUA = 7 weeks 0 day Gestational age = 7 week 2 day based on LMP 04/03/2020 Heart rate 133 BPM Adnexa: Ovaries appears satisfactory with good color Doppler flow to both ovaries Right ovary 3.5 cm x 1.7 x 3.8 cm A few small follicles in right ovary but none measuring over 7 mm but Left ovary 2.9 x 1.5 x 1.8 cm.. A few small follicles left ovary none measuring over 7 mm but no fluid cul-de-sac the the IMPRESSION: . Single viable intrauterine gestation CRL = 7 weeks 0 days Estimated due date by Ultrasound is 01/10/2021 Dictated by: Ray Brenner MD 05/24/2020 18:59 Ray Brenner MD in [facility] 05/24/2020 18:59
== END ==
PROVIDERS: PCP Physician Assistant; Visit Provider Nurse Practitioner Obstetrics & Gynecology
DX: O26.841 Uterine size-date discrepancy, first trimester (principal)
CPT/HCPCS: 76801

== ENCOUNTER → 2020-06-14 10:59 | Outpatient (CLI) | payer BC, OTHER, SELFPAY | PROVIDERS: Visit Provider Nurse Practitioner Obstetrics & Gynecology | DX: Z34.90 Encounter for supervision of normal pregnancy, unspecified, unspecified trimester (principal); Z3A.10 10 weeks gestation of pregnancy | CPT/HCPCS: 87086; 87088; 87186 ==

== ENCOUNTER → 2020-07-14 15:50 | Outpatient (CLI) | payer BC, OTHER, SELFPAY | PROVIDERS: Visit Provider Nurse Practitioner Obstetrics & Gynecology | DX: N39.0 Urinary tract infection, site not specified (principal) | CPT/HCPCS: 87086; 87088; 87186 ==

== ENCOUNTER → 2020-08-25 12:52 | Outpatient (CLI) | payer BC, OTHER, SELFPAY ==
--- NOTE | 2020-08-25 13:07 | US_ITS ---
PROCEDURE: US OB /MATERNAL DETAIL CLINICAL INDICATION: 20 week gestation COMPARISON: US US OB <= 14 WEEKS FETUS from 05/24/2020 FINDINGS: Single viable intrauterine gestation. Breech position. Placenta: Posteriorplacenta There is average amount fluid. The cervix appears satisfactory. Closed and measuring 4 centimeters in length. Complete survey performed and was unremarkable on the submitted images as in PACS. No discrete anomalies identified on survey imaging by technologist. Active fetus. Three-vessel cord with satisfactory umbilical cord insertion. 4- chamber heart noted. Survey of brain & ventricles Unremarkable. Face and neck survey unremarkable. Diaphragm and chest views unremarkable. Abdomen: Both kidneys noted and unremarkable. Stomach noted and satisfactory. Spine: Survey of the spine satisfactory with no anomalies identified nor imaged. Both arms and legs noted. Amniotic Fluid: Adequate. Maternal adnexa: No significant findings. Measurements: Average ultrasound age 20weeks 1day. Gestational Age 20weeks 1day Estimated due date by ultrasound age 0801/11/2021. Estimated weight 333g BPD = 20weeks 2days OFD = 20weeks 3days HC = 19weeks 5days AC = 20weeks 2days FL = 20weeks 2days Growth Percentile= 25Percent% Heart Rate = 146bpm Cerebellum = 20weeks 1day Humerus = 20weeks 5days HC/AC is 1.14 CI is 0.78 FL/BPD is 0.69 FL/AC is 0.22 IMPRESSION: Single viable intrauterine gestation noted with gestational age of 20 weeks and 1 day. No abnormality is detected. Dictated by: Zully Murdock 08/25/2020 17:30 Zully Murdock in [place] 08/25/2020 17:30
== END ==
PROVIDERS: PCP Physician Assistant; Visit Provider Nurse Practitioner Obstetrics & Gynecology
DX: Z34.90 Encounter for supervision of normal pregnancy, unspecified, unspecified trimester (principal); Z3A.20 20 weeks gestation of pregnancy
CPT/HCPCS: 76811

== ENCOUNTER → 2020-09-08 14:51 | Outpatient (CLI) | payer BC, OTHER, SELFPAY | PROVIDERS: Visit Provider Nurse Practitioner Obstetrics & Gynecology | DX: O23.40 Unspecified infection of urinary tract in pregnancy, unspecified trimester (principal) | CPT/HCPCS: 87086; 87088; 87186 ==

== ENCOUNTER 2020-10-01 10:22 | Outpatient (CLI) | payer BC, OTHER, SELFPAY ==
[2020-10-01 10:31] VITALS: BMI 30.3
[2020-10-01 10:57] VITALS: BP 107/70; PULSE 93; RESP 18; TEMP 36.8; O2SAT 95; BMI 30.3
[2020-10-01 11:04] LABS: Microscopic, Urine URINE MICROSCOPIC (MICROSCOPIC)
[2020-10-01 11:06] LABS: Appearance,Urine CLEAR (Clear); Bilirubin,Urine Negative (Negative); Blood, Urine TRACE-I (Negative); Color,Urine YELLOW (Yellow); Glucose,Urine (UA) Negative (Negative); Ketones,Urine Negative (Negative); Leukocyte Esterase,Urine 1+ (Negative); Nitrate,Urine POSITIVE (Negative); PH,Urine 6.5 (5.0-8.5); Protein,Urine TRACE (Negative); Specific Gravity, Urine 1.015 (1.005-1.030); Urobilinogen,Urine 0.2 EU/dl (0.2)
[2020-10-01 11:17] LABS: Amphetamine/Metha Screen,Urine Negative ng/ml (<1000)
[2020-10-01 11:18] LABS: Barbiturates Screen,Urine Negative ng/ml (<200)
[2020-10-01 11:19] LABS: Benzodiazepines Screen,Urine Negative ng/ml (<200); Cannabinoid Screen,Urine Negative ng/ml (<50)
[2020-10-01 11:20] LABS: Cocaine Screen,Urine Negative ng/ml (<300)
[2020-10-01 11:21] LABS: Methadone Screen,Urine Negative ng/ml (<300); Phencyclidine Screen,Urine Negative ng/ml (<25)
[2020-10-01 11:22] LABS: Opiate Screen,Urine Negative ng/ml (<300)
[2020-10-01 11:31] LABS: Bacteria,Urine 1+ /lpf
== END 2020-10-01 13:14 | disposition home or self-care (01) ==
LOC: OBOUT 10:23 → OB 10:24
PROVIDERS: PCP Physician Assistant; Visit Provider Obstetrics & Gynecology
DX: O26.892 Other specified pregnancy related conditions, second trimester (principal); Z3A.26 26 weeks gestation of pregnancy
CPT/HCPCS: 59025; 80305; 81001; 87086; 87088; 87186; 96365; 96367; G0463

== ENCOUNTER 2020-10-10 13:49 | Outpatient (CLI) | payer BC, OTHER, SELFPAY ==
[2020-10-10 14:07] VITALS: BMI 30.3
[2020-10-10 14:25] LABS: Microscopic, Urine URINE MICROSCOPIC (MICROSCOPIC)
[2020-10-10 14:27] LABS: Appearance,Urine CLEAR (Clear); Bilirubin,Urine Negative (Negative); Blood, Urine 2+ (Negative); Color,Urine YELLOW (Yellow); Glucose,Urine (UA) Negative (Negative); Ketones,Urine TRACE (Negative); Leukocyte Esterase,Urine 2+ (Negative); Nitrate,Urine Negative (Negative); PH,Urine 6.5 (5.0-8.5); Protein,Urine 1+ (Negative)
[2020-10-10 14:41] LABS: Bacteria,Urine 2+ /lpf; WBC,Urine TNTC #/hpf (0-3)
[2020-10-10 14:52] LABS: Benzodiazepines Screen,Urine Negative ng/ml (<200)
[2020-10-10 14:53] LABS: Amphetamine/Metha Screen,Urine Negative ng/ml (<1000); Barbiturates Screen,Urine Negative ng/ml (<200)
[2020-10-10 14:57] LABS: Cannabinoid Screen,Urine Negative ng/ml (<50); Cocaine Screen,Urine Negative ng/ml (<300)
[2020-10-10 14:58] LABS: Methadone Screen,Urine Negative ng/ml (<300)
[2020-10-10 14:59] LABS: Opiate Screen,Urine Negative ng/ml (<300); Phencyclidine Screen,Urine Negative ng/ml (<25)
[2020-10-10 15:41] VITALS: BP 103/55; PULSE 96; RESP 18; TEMP 37.3; O2SAT 99; BMI 30.3
== END 2020-10-10 16:20 | disposition home or self-care (01) ==
LOC: UTC.OUT 13:53 → OB 13:53
PROVIDERS: PCP Physician Assistant; Visit Provider Nurse Practitioner Obstetrics & Gynecology
DX: O47.02 False labor before 37 completed weeks of gestation, second trimester (principal); Z3A.27 27 weeks gestation of pregnancy; M54.5 Low back pain
CPT/HCPCS: 59025; 80305; 81001; 87086; 87088; 87186; 96365; 96367; G0463

== ENCOUNTER → 2020-10-14 10:28 | Outpatient (CLI) | payer BC, OTHER, SELFPAY | PROVIDERS: PCP Physician Assistant; Visit Provider Internal Medicine Cardiovascular Disease | DX: R06.00 Dyspnea, unspecified (principal); R00.2 Palpitations; R42 Dizziness and giddiness | CPT/HCPCS: 93270 ==

== ENCOUNTER → 2020-12-01 12:34 | Outpatient (CLI) | payer BC, OTHER, SELFPAY ==
[2020-12-02 12:41] LABS: HSV 2 IgG, Type Spec <0.91 index (0.00-0.90)
== END ==
PROVIDERS: Visit Provider Nurse Practitioner Obstetrics & Gynecology
DX: Z72.51 High risk heterosexual behavior (principal); Z34.90 Encounter for supervision of normal pregnancy, unspecified, unspecified trimester
CPT/HCPCS: 36415; 86695; 86790

== ENCOUNTER 2020-12-03 17:34 | Outpatient (CLI) | payer BC, OTHER, SELFPAY ==
[2020-12-03 18:06] VITALS: BP 124/63; PULSE 96; RESP 18; TEMP 37; O2SAT 97; BMI 28.4
[2020-12-03 18:17] LABS: Microscopic, Urine URINE MICROSCOPIC (MICROSCOPIC)
[2020-12-03 18:20] LABS: Appearance,Urine CLOUDY (Clear); Bilirubin,Urine Negative (Negative); Blood, Urine Negative (Negative); Color,Urine YELLOW (Yellow); Glucose,Urine (UA) Negative (Negative); Ketones,Urine Negative (Negative); Leukocyte Esterase,Urine 2+ (Negative); Nitrate,Urine Negative (Negative); PH,Urine 8.5 (5.0-8.5); Protein,Urine 1+ (Negative); Specific Gravity, Urine 1.015 (1.005-1.030); Urobilinogen,Urine 0.2 EU/dl (0.2)
[2020-12-03 18:30] LABS: Bacteria,Urine 4+ /lpf; WBC,Urine 50-100 #/hpf (0-3)
[2020-12-03 18:33] LABS: Barbiturates Screen,Urine Negative ng/ml (<200); Benzodiazepines Screen,Urine Negative ng/ml (<200)
[2020-12-03 18:34] LABS: Amphetamine/Metha Screen,Urine Negative ng/ml (<1000)
[2020-12-03 18:35] LABS: Cannabinoid Screen,Urine Negative ng/ml (<50); Cocaine Screen,Urine Negative ng/ml (<300)
[2020-12-03 18:36] LABS: Methadone Screen,Urine Negative ng/ml (<300); Opiate Screen,Urine Negative ng/ml (<300)
[2020-12-03 18:37] LABS: Phencyclidine Screen,Urine Negative ng/ml (<25)
== END 2020-12-03 19:05 | disposition home or self-care (01) ==
LOC: OBOUT 17:36 → OB 17:39
PROVIDERS: PCP Physician Assistant; Visit Provider Obstetrics & Gynecology
DX: O47.03 False labor before 37 completed weeks of gestation, third trimester (principal); Z3A.34 34 weeks gestation of pregnancy
CPT/HCPCS: 59025; 80305; 81001; 87086; 87088; 87186; G0463

== ENCOUNTER → 2020-12-08 15:55 | Outpatient (CLI) | payer BC, OTHER, SELFPAY | PROVIDERS: Visit Provider Nurse Practitioner Obstetrics & Gynecology | DX: Z34.93 Encounter for supervision of normal pregnancy, unspecified, third trimester (principal); Z3A.35 35 weeks gestation of pregnancy | CPT/HCPCS: 86403; 87186 ==

== ENCOUNTER 2021-01-02 04:59 | Inpatient (IN) | payer BC, OTHER, SELFPAY ==
[2021-01-02 05:19] VITALS: BMI 28.5
[2021-01-02 05:51] LABS: Coronavirus 19, PCR Not Detected (NotDetected); Influenza A, PCR Not Detected (NotDetected); Influenza B, PCR Not Detected (NotDetected)
[2021-01-02 06:08] LABS: Basophils # 0.1 K/mm3 (0-0.2); Basophils % 0.4 % (0.1-2.0); Eosinophils # 0.2 K/mm3 (0.0-0.4); Eosinophils % 1.2 % (0.1-12.0); Hematocrit 30.1 % (37.0-47.0); Hemoglobin 9.9 g/dL (12.2-16.2); Lymphocytes # 2.4 K/mm3 (0.7-4.5); Lymphocytes % 15.6 % (10-50); Mean Corpuscular HGB Conc 32.9 g/dL (31.8-35.4); Mean Corpuscular Hemoglobin 27.8 pg (27.0-31.2); Mean Corpuscular Volume 84.5 fl (81-99); Mean Platelet Volume 9.5 fl (7.4-10.4); Monocytes # 0.7 K/mm3 (0.1-1.0); Monocytes % 4.6 % (1.7-9.3); Neutrophils # 11.7 K/mm3 (1.8-7.8); Neutrophils % 78.2 % (37.0-80.0); Platelet Count 342 K/mm3 (142-424); Red Blood Count 3.56 M/mm3 (4.20-5.40); Red Cell Distribution Width 16.8 % (11.5-17.5)
[2021-01-02 06:09] LABS: MANUAL DIFFERENTIAL MANUAL DIFFERENTIAL (MANUAL DIFF)
[2021-01-02 06:33] VITALS: BP 109/63; PULSE 110; RESP 18; TEMP 36.7; O2SAT 96; BMI 28.5
[2021-01-02 06:35] LABS: Anisocytosis 1+; Eosinophils % 1 % (0-3); Lymphocytes % 7 % (10-50); Monocytes % 3 % (2-9); Neutrophils % 83 % (42-76); Platelet Estimate Normal; Total Cells Counted 100
--- NOTE | 2021-01-02 07:12 | HMH.PHAINT ---
MEDICATION RECONCILIATION COMPLETED ON PATIENT USING EXTERNAL FILL HISTORY FROM PHARMACY AND LIST FROM DR. SANTOS'S OFFICE. -JOVANY CABRERA, DENISD
[2021-01-02 07:23] LABS: Microscopic, Urine URINE MICROSCOPIC (MICROSCOPIC)
[2021-01-02 07:26] LABS: Appearance,Urine CLOUDY (Clear); Bilirubin,Urine Negative (Negative); Blood, Urine TRACE-I (Negative); Color,Urine YELLOW (Yellow); Glucose,Urine (UA) Negative (Negative); Ketones,Urine Negative (Negative); Leukocyte Esterase,Urine 3+ (Negative); Nitrate,Urine Negative (Negative); Protein,Urine Negative (Negative); Specific Gravity, Urine 1.015 (1.005-1.030); Urobilinogen,Urine 0.2 EU/dl (0.2)
[2021-01-02 07:33] LABS: Bacteria,Urine 1+ /lpf
[2021-01-02 07:38] LABS: Amphetamine/Metha Screen,Urine Negative ng/ml (<1000)
[2021-01-02 07:39] LABS: Barbiturates Screen,Urine Negative ng/ml (<200)
[2021-01-02 07:40] LABS: Cannabinoid Screen,Urine Negative ng/ml (<50)
[2021-01-02 07:41] LABS: Cocaine Screen,Urine Negative ng/ml (<300)
[2021-01-02 07:42] LABS: Methadone Screen,Urine Negative ng/ml (<300); Opiate Screen,Urine Negative ng/ml (<300)
[2021-01-02 07:43] LABS: Phencyclidine Screen,Urine Negative ng/ml (<25)
[2021-01-02 07:45] LABS: Benzodiazepines Screen,Urine Negative ng/ml (<200)
--- NOTE | 2021-01-02 09:51 | HMH.LABNOT ---
Labor Note - Subjective: Date: 01/02/21 Time: 09:51 regular contraction - Objective: NST:: Reactive Contractions:: every 2-3 minutes Cervical Dilation:: 3 Effacement:: 75% Station: -2 Membranes: artificially ruptured - Fetus: Monitoring?: Yes monitoring type:: External - Assessment: Labor progressing?: Yes Cephalopelvic disproportion?: No Patient Problems: All Active Problems (Acute) - Plan: Anesthesia for epidural?: Yes Continue to labor down?: Yes Plan for ?: No Continue to monitor?: Yes Start pushing?: No Comment:: I ruptured her membranes and there was clear fluid.
--- NOTE | 2021-01-02 10:14 | HMH.OBAPHP ---
OB - H&P: HPI Antepartum - History of Present Illness Chief complaint: Term History of present illness: She is a 10 para 3 aborta 5 who was 39 weeks gestational age. She has been feeling uncomfortable and having pressure. As result of that we elected to induce her labor at term. She is group B streptococcus positive. - History of Present Criteria for establishing EDC:: LMP confirmed by 1st trimester US care: good care Ultrasounds: normal 1st trimester US, normal mid trimester US Obstetrical complications: none Medical complications: none - Labs Rubella: immune RPR/VDRL: nonreactive GBS status: negative HBsAG: negative [facility] History I have reviewed the patient's past medical history: Yes Medical History: Reports:: Anxiety, Asthma, Depression, Gastroesophageal Reflux Disease(GERD), Palpitations Denies:: Cancer, Diabetes Mellitus Type 1, Diabetes Mellitus Type 2, Hypertension, Internal Pacemaker, MRSA, Seizures *Have you ever received a pneumonia vaccine?: No *Have you received a flu vaccine this season?: No Other Medical History: Denies: Blood Transfusion Reaction Other Surgeries: Yes: No Previous Surgery, Cholecystectomy. No: , Pacemaker Amputation: No Fractures: No - *Social History Smoking Status: Current every day smoker Tobacco Type: cigarettes # Packs/Day (cigarettes): 1 Alcohol Intake: never Alcohol Intake Frequency:: holidays/special occasions only Substance Use Type: denies use *Occupational Status:: unemployed Housing: house Household Members: children *Travel in the last 8 weeks: None - Psychiatric History Pschychiatric History:: Reports:: Anxiety, Depression Family Hx:: Cancer, Diabetes, Hypertension, Hyperlipidemia, Asthma Para: 3 Review of Systems - Review of Systems Review of systems:: pertinent systems reviewed and negative unless documented below Meds Home Medications Medication Instructions Recorded Confirmed Type pediatric multivitamin no.25-folic 1 tab PO DAILY tab 10/14/20 01/02/21 History acid 300 mcg chewable tablet Ferrous Sulfate 325 mg PO DAILY 01/02/21 01/02/21 History Lidocaine [Lidocaine 5% ointment 1 applic TP TIDP PRN 01/02/21 01/02/21 History 35gm tube] Valacyclovir HCl [Valacyclovir] 500 mg PO DAILY 01/02/21 01/02/21 History ondansetron HCL [Zofran 4mg Tab*] 4 mg PO Q6HP PRN 01/02/21 01/02/21 History Allergies Allergy/AdvReac Type Severity Reaction Status Date / Time fluoxetine [From Prozac] Allergy Mild Verified 12/27/20 10:33 sertraline [From Zoloft] Allergy Mild Verified 12/27/20 10:33 citalopram Allergy Hives Verified 12/27/20 10:33 OB - H&P: Exam - Physical Exam Vital signs: Temp Pulse Resp BP Pulse Ox 98.0 F 110 H 18 109/63 L 96 01/02/21 06:33 01/02/21 06:33 01/02/21 06:33 01/02/21 06:33 01/02/21 06:33 - Constitutional no acute distress - Routine HEENT Exam Head: Present: normocephalic Eye: Present: EOMI, PERRL ENT: Present: mucous membranes moist - Routine Neck Exam Present: supple, full ROM - Routine Respiratory Exam Absent: accessory muscle use (good air entry bilaterally), respiratory distress, wheezes, crackles - Routine Cardiovascular Exam Present: RRR. Absent: murmur - Routine Abdominal Exam Present: soft, normoactive bowel sounds. Absent: tenderness, distended, guarding - Routine Rectal Exam Patient deferred: visual exam, digital exam - Routine Exam Patient deferred: external exam, groin exam, perineal exam - Routine Extremities Exam Present: full ROM. Absent: cyanosis, edema - Routine Skin Exam Present: intact. Absent: cyanosis - Routine Neurological Exam Present: alert, oriented X3 - Routine Psychiatric Exam Present: normal affect OB - Results - Labs Labs: Short CBC 01/02/21 Range/Units 05:35 WBC 15.0 H (4.8-10.8) K/mm3 Hgb 9.9 L (12.2-16.2) g/dL Hct 30.1 L (37.0-47.0) % Plt Count 342 (142-424)
--- NOTE | 2021-01-02 10:52 | HMH.ANESCL ---
[facility] Anesthesia Checklist - Patient Identification Patient Identification: Arm Band - Structural Data Admitted From: Inpatient Planned Operative Procedure/s: labor epidural Consent for Planned Operative Procedure(s) Verified: Yes Verified Documents: Surgical Consent, History and Physical - NPO Status Verified Time NPO: 00:00 - Additional verifications Anesthesia Reactions: No Hx Blood Transfusions: No Blood Transfusion Reaction: No - Airway Assessment C-Spine Mobility Assessed: Yes TMJ Mobility Assessed: Yes Dentition: Good Dentition - Neurological Assessment Level of Consciousness: Awake, Alert - Anesthesia Plan Anesthesia Risk discussed: Yes Anesthesia Plan: Verified ASA Class: II Anesthesia Type: Epidural [facility] History I have reviewed the patient's past medical history: Yes Medical History: Reports:: Anxiety, Asthma, Depression, Gastroesophageal Reflux Disease(GERD), Palpitations Denies:: Cancer, Diabetes Mellitus Type 1, Diabetes Mellitus Type 2, Hypertension, Internal Pacemaker, MRSA, Seizures *Have you ever received a pneumonia vaccine?: No *Have you received a flu vaccine this season?: No Other Medical History: Denies: Blood Transfusion Reaction Anesthesia experience/problems:: nac Other Surgeries: Yes: Cholecystectomy. No: , Pacemaker Amputation: No Fractures: No - *Social History Smoking Status: Current every day smoker Tobacco Type: cigarettes # Packs/Day (cigarettes): 1 Alcohol Intake: never Alcohol Intake Frequency:: holidays/special occasions only Substance Use Type: denies use *Occupational Status:: unemployed Housing: house Household Members: children *Travel in the last 8 weeks: None - Psychiatric History Pschychiatric History:: Reports:: Anxiety, Depression Family Hx:: Cancer, Diabetes, Hypertension, Hyperlipidemia, Asthma Para: 3
--- NOTE | 2021-01-02 11:45 | HMH.LABNOT ---
Labor Note - Subjective: Date: 01/02/21 Time: 11:20 regular contraction - Objective: NST:: Reactive Contractions:: every 2-3 minutes Cervical Dilation:: 5 Effacement:: 90% Station: 0 Membranes: artificially ruptured - Fetus: Monitoring?: Yes monitoring type:: External - Assessment: Labor progressing?: Yes Cephalopelvic disproportion?: No Patient Problems: All Active Problems Normal delivery (Acute) (Acute) - Plan: Anesthesia for epidural?: Yes Continue to labor down?: Yes Plan for ?: No Continue to monitor?: Yes Start pushing?: No Comment:: She is progressing well. We will expect a vaginal delivery.
--- NOTE | 2021-01-02 12:57 | HMH.DN ---
- Delivery Note Delivery Date:: 01/02/21 Delivery Time:: 12:46 Anesthesia Type: Epidural Was labor medically induced?: Yes Induction method: per pitocin protocol Gestational age (weeks): 39 delivered prior to 39 weeks?: No Gender: Male at 1 minute: 8 at 5 minutes: 9 Delivery Procedure:: She is a 25-year-old 9 now para 4 aborta 5 who was 39+ weeks gestational age. She was seen in my office and was seen to be 2 to 3 cm dilated. As result of that we brought her in for induction of labor at term. She was started on IV oxytocin had her membranes ruptured. Under labor epidural progressed to full dilation and delivered spontaneously a liveborn male child at 12:46 PM in the afternoon of January 02, 2021. This was followed by delivery of the anterior shoulder and the rest of his body atraumatically. The nurses were in attendance for the delivery. I was called but the baby delivered shortly after the nurses called me to attend the delivery. The cord was doubly clamped and cut and the was placed on the mother's abdomen for further care. The nurses assigned Apgars of 8 at 1 minute and 9 at 5 minutes. We then obtained cord blood as well as cord pH. I arrived to take the cord blood. She received IV oxytocin using gentle traction on the cord and countertraction on the fundus I was able to easily deliver the placenta intact. Had a normal three-vessel cord. There were no perineal or vaginal lacerations. She has a positive blood, she is rubella immune and was group B streptococcus positive. She received IV ampicillin while in labor. Her estimated blood loss was approximately 200 cc. Placental Delivery Description: Spontaneous
[2021-01-02 13:00] LABS: Cord Blood PH 7.36 (7.35-7.45)
[2021-01-03 06:02] LABS: Hematocrit 28.6 % (37.0-47.0); Hemoglobin 9.5 g/dL (12.2-16.2)
[2021-01-03 08:00] VITALS: BP 117/57; PULSE 71; RESP 18; TEMP 36.3; O2SAT 96
--- NOTE | 2021-01-03 09:43 | HMH.ACPN2 ---
Internal Medicine - PN: Subj *Date: 01/03/21 *Time: 09:43 Interval history: She is doing very well. We will plan to send her home tomorrow. She is eating and drinking and ambulating. Her lochia is normal. Exam Vital signs and Labs for Last 24 Hours: Temp Pulse Resp BP Pulse Ox 97.3 F L 71 18 117/57 L 96 01/03/21 08:00 01/03/21 08:00 01/03/21 08:00 01/03/21 08:00 01/03/21 08:00 Laboratory Results - last 24 hr 01/02/21 12:57: Cord ABG pH 7.36 01/03/21 05:27: Hgb 9.5 L, Hct 28.6 L I & O for Last 24 hours: Intake & Output 12/31/20 01/01/21 01/02/21 01/03/21 11:59 11:59 11:59 11:59 Weight 156 lb Microbiology Reports for the Last 24 Hours: Microbiology 01/02/21 06:30 Urine,Clean Catch Urine Culture - Preliminary NO GROWTH AFTER 24 HOURS - Constitutional no acute distress - *Routine HEENT Exam Head: Present: normocephalic Eye: Present: EOMI, PERRL ENT: Present: mucous membranes moist Assessment and Plan (1) Normal delivery Status: Acute Category: Medical Code(s): O80 - Encounter for full-term uncomplicated delivery - Assessment and plan all Dx Assessment and Plan for all problems:: She is doing well. We will plan to send her home tomorrow. She is bottlefeeding.
--- NOTE | 2021-01-04 10:19 | HMH.OBDCSM ---
General - General Admission date:: 01/02/21 Discharge date: 01/04/21 HPI - History of Present Illness History of present illness: She is a 25-year-old 9 now para 4 aborta 5 who was 39 1 weeks gestational age. She was at term and since she was a multipara we elected to deliver her at 39 weeks. Hospital Course Hospital Course: She was started on oxytocin and had her membranes ruptured. Under labor epidural progressed to full dilation and delivered spontaneously a liveborn male child at 12:46 PM in the afternoon of January 02 2021. Baby weighed 6 pounds 9 ounces and was 19 inches long. He had Apgars of 8 at 1 minute and 9 at 5 minutes. She has done well and has remained afebrile throughout her hospitalization. She is eating and drinking and ambulating. She is breast-feeding. Her lochia is normal. She is discharged home to follow-up with me in approximately 2 weeks time. She will continue with her vitamins and iron. She was given the usual instructions with respect to limiting her activity, driving and sexual activity. 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 Her condition on discharge is stable improved. Rhogam Administration: Not Indicated Objective Vital signs: Temp Pulse Resp BP Pulse Ox 97.3 F L 71 18 117/57 L 96 01/03/21 08:00 01/03/21 08:00 01/03/21 08:00 01/03/21 08:00 01/03/21 08:00 no acute distress - *Routine HEENT Exam Head: Present: normocephalic Eye: Present: EOMI, PERRL ENT: Present: mucous membranes moist Results Labs on day of discharge: Preliminary micro results at discharge 01/02/21 06:30 Urine Culture - Preliminary Urine,Clean Catch DS: Diagnosis - Discharge Diagnosis (1) Normal delivery Status: Acute Discharge Plan - Patient Discharge Instructions ACTIVITY: No heavy lifting DIET: continue same diet Additional Instructions: No driving two weeks, no heavy lifting, nothing in the vagina for 6 weeks. Patient Instructions: Depression, Hemorrhage, DI for Labor and Delivery, Vaginal , DI for Pre-eclampsia, [facility] Post Discharge Instructions, Preventing the Spread of Coronavirus Discharge Instructions - Follow up Plan Follow up with: Aiden Chery MD [Staff Physician] - 01/17/21 10:45 am Disposition: Home, Self-Care Condition at discharge:: Stable Home Medications: Home Medications Medication Instructions Recorded Confirmed Type pediatric multivitamin no.25-folic 1 tab PO DAILY tab 10/14/20 01/02/21 History acid 300 mcg chewable tablet RX: Ferrous Sulfate 325 mg PO DAILY 01/02/21 01/02/21 History RX: Lidocaine [Lidocaine 5% 1 applic TP TIDP PRN 01/02/21 01/02/21 History ointment 35gm tube] RX: Valacyclovir HCl [Valacyclovir] 500 mg PO DAILY 01/02/21 01/02/21 History RX: ondansetron HCL [Zofran 4mg 4 mg PO Q6HP PRN 01/02/21 01/02/21 History Tab*] Prescriptions/Medication Reconciliation: Continued pediatric multivitamin no.25-folic acid 300 mcg chewable tablet 1 tab PO DAILY tab RX: ondansetron HCL [Zofran 4mg Tab*] 4 mg PO Q6HP PRN PRN Reason: Nausea And Vomiting RX: Valacyclovir HCl [Valacyclovir] 500 mg PO DAILY RX: Lidocaine [Lidocaine 5% ointment 35gm tube] 1 applic TP TIDP PRN PRN Reason: pain RX: Ferrous Sulfate 325 mg PO DAILY - Problem Reconciliation Problems Reviewed?: Yes
--- NOTE | 2021-01-04 10:55 | SW/DCPLANNER ---
RECEIVED REFERRAL FOR THIS PATIENT STATING PATIENT HAS PUBLICLY EXPRESSED HER NEED FOR DIAPERS, MONEY FOR BASIC UTILITIES AND TRANSPORTATION.. PATIENT DELIVERED A LIVE BORN MALE NAMED VIANCA EVANGELISTA, SHE HAS 3 OTHER CHILDREN ALL GIRLS HEBERT, TAMELA AND RUBY.. SHE STATED SHE IS AND DOES NOT HAVE ANY DRUG HISTORY...I HAVE GIVEN HER FEDERATED TRANSPORT NUMBER AND RESOURCES TO REINSTATE HER WIC AND FOOD STAMPS.. PATIENT STATED SHE RECENTLY GOT HER WATER TURNED OFF AND THE LOCAL EPISCOPALIAN, [facility] HAS HELPED TO GET THE WATER TURNED BACK ON. WHEN I CALLED THE REFERRAL IN TO [facility] THEY GAVE AN ID# [id number].. PATIENT STATED SHE DOES NOT RECEIVE ANY CHILD SUPPORT ON ANY OF THE CHILDREN. SHE DID SAY SHE GETS RESEARCH FELLOW CREDIT OF $600 PER MONTH. THERE ARE NO PROGRAMS THAT OFFER DIAPERS.. I DID TELL HER THAT THE [employer] IS A WONDERFUL RESOURCE AND CAN OFFER ASSISTANCE WITH COUPONS AND DISCOUNTS FOR THINGS FOR INFANTS.. HER MOTHER IS HERE TO PICK HER UP AND SHE DOES HAVE A CARSEAT AND STATED SHE HAS A NEW BABY BED FOR THE ..SHE HAS CHOSEN DR ELLIS THE INFANTS DOCTOR..
== END 2021-01-04 11:45 | disposition home or self-care (01) | DRG 807 ==
PROVIDERS: Admitting Provider Nurse Practitioner Obstetrics & Gynecology; PCP Physician Assistant; Visit Provider Nurse Practitioner Obstetrics & Gynecology
DX: O80 Encounter for full-term uncomplicated delivery (principal); Z37.0 Single live birth; Z3A.39 39 weeks gestation of pregnancy
CPT/HCPCS: 59409; 36415; 59025; 80305; 81001; 82800; 85007; 85014; 85018; 85025; 86850; 87086; 87088; 87186; 94761; G0283; J0290; U0003

== ENCOUNTER → 2021-04-03 10:11 | Outpatient (CLI) | payer BC, OTHER, SELFPAY ==
[2021-04-03 11:31] LABS: Urine Pregnancy, HCG Qual. Negative (Negative)
== END ==
PROVIDERS: Visit Provider Nurse Practitioner Obstetrics & Gynecology
DX: Z01.818 Encounter for other preprocedural examination (principal); Z11.52 Encounter for screening for COVID-19; Z30.09 Encounter for other general counseling and advice on contraception
CPT/HCPCS: 81025; C9803; U0003; U0005

== ENCOUNTER 2021-04-05 05:59 | Day surgery (SDC) | payer BC, OTHER, SELFPAY ==
[2021-03-31 12:24] VITALS: BMI 27.2
[2021-04-05] VITALS (9 sets, daily range): BP systolic 111–137; BP diastolic 58–86; PULSE 56–98; RESP 12–20; TEMP 36.2–36.6; O2SAT 93–100
--- NOTE | 2021-04-05 06:47 | HMH.ANESCL ---
[facility] Anesthesia Checklist - Structural Data Admitted From: Home Planned Operative Procedure/s: bilat salpingectomy Consent for Planned Operative Procedure(s) Verified: Yes - Additional verifications Anesthesia Reactions: No Hx Blood Transfusions: No Blood Transfusion Reaction: No - Airway Assessment C-Spine Mobility Assessed: Yes TMJ Mobility Assessed: Yes Dentition: Good Dentition - Neurological Assessment Level of Consciousness: Awake, Alert, Appropriate - Anesthesia Plan Anesthesia Risk discussed: Yes Anesthesia Plan: Verified ASA Class: II Anesthesia Type: General [facility] History I have reviewed the patient's past medical history: Yes Medical History: Reports:: Anxiety, Asthma, Depression, Gastroesophageal Reflux Disease(GERD), Palpitations Denies:: Cancer, Diabetes Mellitus Type 1, Diabetes Mellitus Type 2, Hypertension, Internal Pacemaker, MRSA, Seizures *Have you ever received a pneumonia vaccine?: No *Have you received a flu vaccine this season?: No Other Medical History: Denies: Blood Transfusion Reaction Anesthesia experience/problems:: none Other Surgeries: Yes: No Previous Surgery, Cholecystectomy. No: , Pacemaker Amputation: No Fractures: No - *Social History Last grade of school completed: High school graduate Smoking Status: Current every day smoker Tobacco Type: cigarettes # Packs/Day (cigarettes): 1 Alcohol Intake: current Alcohol Intake Frequency:: holidays/special occasions only Substance Use Type: denies use *Occupational Status:: employed Housing: house Household Members: children *Travel in the last 8 weeks: None - Psychiatric History Pschychiatric History:: Reports:: Anxiety, Depression Family Hx:: Cancer, Diabetes, Hypertension, Hyperlipidemia, Asthma
[2021-04-05 07:01] LABS: Urine Pregnancy, HCG Qual. Negative (Negative)
[2021-04-05 07:33] LABS: Basophils # 0.1 K/mm3 (0-0.2); Eosinophils # 0.5 K/mm3 (0.0-0.4); Eosinophils % 6.3 % (0.1-12.0); Hemoglobin 13.2 g/dL (12.2-16.2); Lymphocytes # 1.9 K/mm3 (0.7-4.5); Lymphocytes % 22.4 % (10-50); Mean Corpuscular HGB Conc 33.1 g/dL (31.8-35.4); Mean Corpuscular Hemoglobin 29.9 pg (27.0-31.2); Mean Corpuscular Volume 90.5 fl (81-99); Mean Platelet Volume 9.4 fl (7.4-10.4); Monocytes # 0.5 K/mm3 (0.1-1.0); Monocytes % 5.7 % (1.7-9.3); Neutrophils # 5.5 K/mm3 (1.8-7.8); Neutrophils % 64.6 % (37.0-80.0); Platelet Count 268 K/mm3 (142-424); Red Blood Count 4.42 M/mm3 (4.20-5.40); Red Cell Distribution Width 16.5 % (11.5-17.5); White Blood Count 8.5 K/mm3 (4.8-10.8)
[2021-04-05 07:56] LABS: Alanine Aminotransferase 23 U/L (12-78); Albumin/Globulin Ratio 1.4 (1.1-1.8); Alkaline Phosphatase 93 U/L (38-126); Anion Gap 11.9 mEq/L (5-15); Aspartate Amino Transferase 30 U/L (14-36); Blood Urea Nitrogen 13 mg/dl (7-17); Calcium 9.3 mg/dl (8.4-10.2); Carbon Dioxide 25 mmol/L (22.0-30.0); Chloride 108 mmol/L (98-107); Creatinine Clearance Estimated 185 mL/min (50-200); Estimated Glomerular Filt Rate 152 ml/min (>60); GFR (African American) 183 ML/MIN (>60); Globulin 2.9 g/dL (1.3-3.2); Glucose 94 mg/dl (74-100); Potassium 3.9 mmoL/L (3.5-5.1); Sodium 141 mmol/L (136-145); Total Protein,Serum 6.9 g/dl (6.3-8.2)
[2021-04-05 07:57] LABS: Bilirubin,Total < 0.1 mg/dl (0.2-1.3)
--- NOTE | 2021-04-05 08:21 | HMH.OPNOTE ---
Date of procedure: 04/05/21 Pre-op Diagnosis:: Desire for sterilization Post-op Diagnosis:: Desire for sterilization Procedure performed:: Laparoscopic bilateral salpingectomy Surgeon:: Aiden Chery MD STRATEGY EXECUTION CONSULTANT:: Hitesh Roblero Anesthesia: GETA Estimated blood loss (mL): 25 Clinical Note:: She is a 25-year-old 4 para 4 who expressed desire for sterilization. The risks and benefits as well as the irreversibility of bilateral salpingectomy were discussed with the patient prior to surgery. Operative findings:: She had a normal-appearing anteverted uterus. The ovaries and tubes appeared normal. The cul-de-sac appeared normal. The upper abdomen as well as the appendix appeared normal. Operative note:: She was taken to the operating room where general anesthesia was found be adequate. She was prepped and draped in normal sterile fashion in the semilithotomy position. A weighted speculum was placed in the vagina and the anterior lip of the cervix was grasped with a tenaculum. I then inserted a Lesley uterine manipulator into the cervical os. The balloon was then insufflated. I changed gloves and injected 10 cc of 0.5% ropivacaine around her umbilicus and made a small incision within the umbilicus. I inserted a Veress needle into the abdominal cavity. The peritoneal cavity was then insufflated with carbon dioxide gas to a pressure of 20 mmHg. I then inserted a 5 millimeter trocar under direct vision. I injected through and through the pubic hairline, made a small incision here and inserted an 8 mm trocar under direct vision. I identified the inferior epigastric artery on the left side, went lateral to these and injected through and through. I then placed a 5 mm trocar here under direct vision. The pelvis and upper abdomen were then inspected and the findings were as previously dictated. I grasped the right tube at the cornua and using harmonic scalpel on coagulation mode I cut through the tube. I then grasped the distal tube and using harmonic scalpel cut along the mesosalpinx. The tube was removed through 8 mm trocar site. This was similarly performed on the patient's left side. I then injected 30 cc of 0.5% ropivacaine into the pelvis. After assuring hemostasis the gas was let out of the abdomen and hemostasis was once again assured. The abdomen was then reinsufflated. The secondary trochars were removed under direct vision. The gas was let out her abdomen. The primary trocar was then removed. The 8 mm trocar site was closed deeply with 2-0 Vicryl suture followed by subcuticular 4-0 Monocryl suture. The 5 mm trocar sites were closed with subcuticular 4-0 Monocryl. Sterile dressings were applied. The patient tolerated the procedure well and was taken to the recovery room in excellent condition. All sponge instrument and needle counts were correct. The estimated blood loss was less than 25 cc. Condition: stable Disposition: PACU Specimens:: Bilateral fallopian tubes Complications:: None
--- NOTE | 2021-04-05 08:29 | HMH.ANESI ---
[facility] Anesthesia Record Part I Intake, IV Amount: 1,500 Estimated blood loss (mL): 25 Urine output (mL): 0 Blood Pressure: 126/86 SaO2: 96 Pulse Rate: 98 Respiratory Rate: 12 Temperature: 97.1 F Patient is:: Awake, Stable Stable to PACU at:: 08:25
== END 2021-04-05 09:26 | disposition home or self-care (01) ==
LOC: OR 06:02
PROVIDERS: PCP Physician Assistant; Visit Provider Nurse Practitioner Obstetrics & Gynecology
PROC: 0UL74ZZ Occlusion of Bilateral Fallopian Tubes, Percutaneous Endoscopic Approach (ICD-10-PCS; CPT 58670; principal; 2021-04-05 07:30)
DX: Z30.2 Encounter for sterilization (principal); J45.909 Unspecified asthma, uncomplicated; F41.9 Anxiety disorder, unspecified; F32.9 Major depressive disorder, single episode, unspecified; K21.9 Gastro-esophageal reflux disease without esophagitis; R00.2 Palpitations; Z72.0 Tobacco use; Z80.9 Family history of malignant neoplasm, unspecified; Z83.3 Family history of diabetes mellitus; Z82.49 Family history of ischemic heart disease and other diseases of the circulatory system; Z83.438 Family history of other disorder of lipoprotein metabolism and other lipidemia; Z82.5 Family history of asthma and other chronic lower respiratory diseases
CPT/HCPCS: 58661; 36415; 80053; 81025; 85025; 96374

== ENCOUNTER 2021-12-05 13:55 | Emergency (ER) | payer BC, OTHER, SELFPAY ==
[2021-12-05 14:32] VITALS: BP 113/65; PULSE 112; RESP 16; TEMP 37.9; O2SAT 98; BMI 28.3
--- NOTE | 2021-12-05 14:49 | HMH.EDUTC ---
[facility] [place] Clinical Impression: Viral syndrome, Exposure to COVID-19 virus Disposition: Home, Self-Care Condition on Discharge: Good Instructions: Preventing the Spread of Coronavirus Discharge Instructions, DI for COVID-19 (Suspected or Confirmed ), DI for Viral Syndrome Additional Instructions: Drink plenty of fluids. Take tylenol or ibuprofen for pain or fever. Take the medications as directed. Follow up with your regular doctor. GO TO THE ER FOR ANY WORSENING SYMPTOMS Quarantine until you know the results of your covid-19 test. Notify your school or workplace of your results and follow their instructions regarding return to work/school. Prescriptions: Ondansetron [Zofran 4mg ODT] 4 mg PO Q8HP PRN #12 tab PRN Reason: Nausea Transmission Status: Pending to [facility] Referrals: Colleen Walls PA [Primary Care Provider] - Forms: Work/School Release Time of Disposition: 15:23 Medical Decision Making - Medical Records Medical records reviewed: No: I reviewed the patient's medical records. - Hang Inquiry Pt receiving controlled substance: No Vital Signs: 12/05/21 14:32 Temperature 100.2 F H Temperature Source Oral Pulse Rate [Left] 112 H Respiratory Rate 16 Blood Pressure [Right Arm] 113/65 Blood Pressure Mean [Right Arm] 81 02 Sat by Pulse Oximetry 98 Orders (Tests/Meds): ORDERS Category Date Time Status Covid-19 Nasal PCR ([facility]) Routine Lab 12/05/21 14:30 Received [facility] [place] HPI - General Stated complaint: fever, chills, KISER, bodyaches Time Seen by Provider: 12/05/21 14:49 Description of Symptoms (Recalled from Triage Doc. by RN): patient comes in for fever, chills, body ache, headache. symptoms began this morning. HEENT Symptoms (Recalled from RN notes): Yes Resp Symptoms (Recalled from RN notes): Yes Skin Symptoms (Recalled from RN notes): No MS Symptoms (Recalled from RN notes): No Functional Status (Recalled from RN notes): n/a - History of Present Illness Provider Complaint: She states that since last night she has felt bad, ran a low grade fever, had nausea and vomiting and had headache/body aches. - Related Data Home Medications Medication Instructions Recorded Confirmed Ferrous Sulfate 325 mg PO DAILY 01/02/21 04/05/21 norgestimate-ethinyl estradioL 1 tab PO DAILY 03/31/21 04/05/21 [Previfem Tablet] Previous Rx's Medication Instructions Recorded Oxycodone HCl/Acetaminophen 1 tab PO Q4-6H PRN #20 tab 04/05/21 [Percocet 5/325mg tablet] Ondansetron [Zofran 4mg ODT] 4 mg PO Q8HP PRN #12 tab 12/05/21 Allergies Allergy/AdvReac Type Severity Reaction Status Date / Time fluoxetine [From Prozac] Allergy Mild Verified 12/05/21 14:34 sertraline [From Zoloft] Allergy Mild Verified 12/05/21 14:34 citalopram Allergy Hives Verified 12/05/21 14:34 - Worker's Comp Is this a Worker's Comp case?: No [facility] History - Hepatitis A Screen Attestation statement:: This patient has been screened for Hepatitis A risk factors. I have reviewed the patient's past medical history: Yes Medical History: Reports:: Anxiety, Asthma, Depression, Gastroesophageal Reflux Disease(GERD), Palpitations Denies:: Cancer, Diabetes Mellitus Type 1, Diabetes Mellitus Type 2, Hypertension, Internal Pacemaker, MRSA, Seizures Other Medical History: Denies: Blood Transfusion Reaction Comment: PARAGARD IUD removed Other Surgeries: Yes: No Previous Surgery, Cholecystectomy. No: , Pacemaker Amputation: No Fractures: No - Social History Smoking Status: Current every day smoker Tobacco Type: cigarettes # Packs/Day (cigarettes): 1 Alcohol Intake: current Alcohol Intake Frequency:: holidays/special occasions only Substance Use Type: denies use Occupational Status: employed Housing: house Household Members: children - Psychiatric History Pschychiatric History:: Reports:: Anxiety, Depression Family Hx:: Cancer, Diabe
[2021-12-05 15:32] VITALS: BP 113/65; PULSE 112; RESP 16; TEMP 37.2
== END 2021-12-05 15:32 | disposition home or self-care (01) ==
PROVIDERS: Emergency Provider Nurse Practitioner Family; PCP Physician Assistant
DX: U07.1 COVID-19 (principal); B34.9 Viral infection, unspecified; R00.2 Palpitations; K21.9 Gastro-esophageal reflux disease without esophagitis; F17.210 Nicotine dependence, cigarettes, uncomplicated; Z88.8 Allergy status to other drugs, medicaments and biological substances; Z82.49 Family history of ischemic heart disease and other diseases of the circulatory system; Z83.3 Family history of diabetes mellitus; Z80.9 Family history of malignant neoplasm, unspecified; Z82.5 Family history of asthma and other chronic lower respiratory diseases; Z83.438 Family history of other disorder of lipoprotein metabolism and other lipidemia
CPT/HCPCS: 99213; C9803; G0463; U0003; U0005

== ENCOUNTER 2022-01-11 11:54 | Emergency (ER) | payer BC, OTHER, SELFPAY ==
--- NOTE | 2022-01-11 12:07 | HMH.EDUTC ---
[facility] [place] Clinical Impression: Viral syndrome Disposition: Home, Self-Care Condition on Discharge: Good Instructions: DI for COVID-19 (Suspected or Confirmed ), Preventing the Spread of Coronavirus Discharge Instructions Additional Instructions: Drink plenty of fluids. Take tylenol or ibuprofen for pain or fever. Take the medications as directed. Follow up with your regular doctor. GO TO THE ER FOR ANY WORSENING SYMPTOMS Quarantine until you know the results of your covid-19 test. Notify your school or workplace of your results and follow their instructions regarding return to work/school. Prescriptions: Brompheniramine/Pseudoephed/Dm [Bromfed Dm Cough Syrup] 5 ml PO Q6HP PRN #240 ml PRN Reason: Cough Transmission Status: Received by [facility] Ondansetron [Zofran 4mg ODT] 4 mg PO Q8HP PRN #12 tab PRN Reason: Nausea Transmission Status: Received by [facility] Referrals: Colleen Walls PA [Primary Care Provider] - Forms: Work/School Release Time of Disposition: 12:38 Medical Decision Making - Medical Records Medical records reviewed: No: I reviewed the patient's medical records. - Hang Inquiry Pt receiving controlled substance: No Vital Signs: 01/11/22 12:13 01/11/22 12:42 Temperature 98.5 F 98.5 F Temperature Source Oral Pulse Rate 87 Pulse Rate [Left] 87 Respiratory Rate 17 17 Blood Pressure 122/79 Blood Pressure [Right Arm] 122/79 Blood Pressure Mean [Right Arm] 93 02 Sat by Pulse Oximetry 96 - Lab Data Lab results reviewed: Yes: I reviewed the patient's lab results. Lab Results 01/11/22 12:13: Strep Scn Rapid Clinic Negative Orders (Tests/Meds): ORDERS Category Date Time Status Strep Screen Confirmation Stat Micro 01/11/22 12:13 Received [facility] [place]PI - General Stated complaint: Lightheaded, cough, mucus, headache Time Seen by Provider: 01/11/22 12:08 - History of Present Illness Provider Complaint: She has felt bad, had body aches and a sore throat for the past 2 days. - Related Data Home Medications Medication Instructions Recorded Confirmed Ferrous Sulfate 325 mg PO DAILY 08/09/21 11/10/21 norgestimate-ethinyl estradioL 1 tab PO DAILY 03/31/21 04/05/21 [Previfem Tablet] Previous Rx's Medication Instructions Recorded Oxycodone HCl/Acetaminophen 1 tab PO Q4-6H PRN #20 tab 04/05/21 [Percocet 5/325mg tablet] Ondansetron [Zofran 4mg ODT] 4 mg PO Q8HP PRN #12 tab 12/05/21 Brompheniramine/Pseudoephed/Dm 5 ml PO Q6HP PRN #240 ml 01/11/22 [Bromfed Dm Cough Syrup] Ondansetron [Zofran 4mg ODT] 4 mg PO Q8HP PRN #12 tab 01/11/22 Allergies Allergy/AdvReac Type Severity Reaction Status Date / Time fluoxetine [From Prozac] Allergy Mild Verified 01/11/22 12:18 sertraline [From Zoloft] Allergy Mild Verified 01/11/22 12:18 citalopram Allergy Hives Verified 01/11/22 12:18 [facility] History - Hepatitis A Screen Attestation statement:: This patient has been screened for Hepatitis A risk factors. I have reviewed the patient's past medical history: Yes Medical History: Reports:: Anxiety, Asthma, Depression, Gastroesophageal Reflux Disease(GERD), Palpitations Denies:: Cancer, Diabetes Mellitus Type 1, Diabetes Mellitus Type 2, Hypertension, Internal Pacemaker, MRSA, Seizures Other Medical History: Denies: Blood Transfusion Reaction Comment: PARAGARD IUD removed Other Surgeries: Yes: No Previous Surgery, Cholecystectomy. No: , Pacemaker Amputation: No Fractures: No - Social History Smoking Status: Current every day smoker Tobacco Type: cigarettes # Packs/Day (cigarettes): 1 Alcohol Intake: current Alcohol Intake Frequency:: holidays/special occasions only Substance Use Type: denies use Occupational Status: employed Housing: house Household Members: children - Psychiatric History Pschychiatric History:: Reports:: Anxiety, Depression Fam
[2022-01-11 12:13] VITALS: BP 122/79; PULSE 87; RESP 17; TEMP 36.9; O2SAT 96; BMI 27.4
[2022-01-11 12:23] LABS: UTC Strep Screen (Rapid) Negative (Negative)
[2022-01-11 12:42] VITALS: BP 122/79; PULSE 87; RESP 17; TEMP 36.9
== END 2022-01-11 12:43 | disposition home or self-care (01) ==
PROVIDERS: Emergency Provider Nurse Practitioner Family; PCP Physician Assistant
DX: B34.9 Viral infection, unspecified (principal)
CPT/HCPCS: 87880; 99212; C9803; G0463; U0003; U0005

== ENCOUNTER 2022-04-11 10:31 | Emergency (ER) | payer BC, OTHER, SELFPAY ==
[2022-04-11 12:05] VITALS: BP 117/76; PULSE 87; RESP 20; TEMP 36.9; O2SAT 97; BMI 24.2
[2022-04-11 12:26] LABS: UTC Influenza A Antigen Negative (Negative)
--- NOTE | 2022-04-11 12:26 | EXP.UTC ---
Discharge Plan Disposition Patient Disposition: Home, Self-Care Condition: Good Referrals Follow up/Referrals: Colleen Walls PA [Primary Care Provider] - See instructions Activity Restrictions/Add. Instructions Additional Instructions/Restrictions: *Monitor Temp, Over the counter Motrin or Tylenol as directed/as needed Tylenol every 4 hours and Motrin every 6 hours (as long as your family doctor has told you that you can take it) for fever or pain. and straight to ER if unable to lower temp less than 101.0 after medication given *Warm salt water gargles may help to soothe the throat *Throat Lozenges? *Warm fluids like tea with honey may help to soothe the throat? *Sleep elevated *Humidifier/Vaporizer Follow up IMMEDIATELY for new or worsening symptoms or no Noticeable improvement over the next 48-72 hours. 911 for difficulty breathing or swallowing Clinical Impressions Clinical Impression: Viral syndrome Instructions Patient Instructions: DI for Viral Upper Respiratory Infection -- Adult Discharge ED Provider: Miriam Moore [facility] General Stated complaint: KISER, Cough, Drainage, SOA Mode of Arrival: Ambulatory Source of Information: Patient Limitations: No Limitations Time Seen by Provider: 04/11/22 12:26 Description of Symptoms (Recalled from Triage Doc. by RN): PATIENT C/O COUGH, RUNNY NOSE, SOA, HEADACHE AND FEVER SINCE YESTERDAY HEENT Symptoms (Recalled from RN notes): Yes Resp Symptoms (Recalled from RN notes): Yes Skin Symptoms (Recalled from RN notes): No MS Symptoms (Recalled from RN notes): No Functional Status (Recalled from RN notes): WNL History of Present Illness Provider Complaint: Patient states that she has been having cough, runny nose, headache and flu like symptoms for a couple of days State that her child is sick to with similar symptoms and she was worried she may have the flu Related Data Allergies Allergy/AdvReac Type Severity Reaction Status Date / Time fluoxetine [From Prozac] Allergy Mild Verified 01/11/22 12:18 sertraline [From Zoloft] Allergy Mild Verified 01/11/22 12:18 citalopram Allergy Hives Verified 01/11/22 12:18 Worker's Comp Is this a Worker's Comp case?: No PFSH PFSH Medical History (Updated 04/11/22 @ 12:29 by Miriam Moore APRN) Anxiety Asthma Depression Kidney stone Urinary tract infection Surgical History (Updated 04/11/22 @ 12:21 by Maile Tuttle RN) History of cholecystectomy History of tubal ligation Social History (Updated 04/11/22 @ 12:21 by Maile Tuttle, RN) Smoking Status: Current every day smoker tobacco type: cigarettes packs per day: 1 second hand exposure: Yes alcohol intake: current substance use type: denies use current occupational status: employed Travel in the last 8 weeks: None household members: children housing: house current occupation: [email or web address] current occupational exposures/hazards: No caffeine: Yes ROS Obtained: Yes All systems reviewed & no additional complaints except as documented and Yes Systems reviewed as appropriate & no additional complaints except as documented Constitutional Constitutional: Reports system reviewed and no additional complaints, except as documented, Reports as per HPI, Reports body ache, Reports chills and Reports headache(s) ENT Ears, Nose, Mouth, and Throat: Reports system reviewed and no additional complaints, except as documented, Reports as per HPI, Reports headache(s), Reports nasal congestion and Reports nasal discharge Cardiovascular Cardiovascular: Reports system reviewed and no additional complaints, except as documented and Reports as per HPI Respiratory Respiratory: Reports system reviewed and no additional complaints, except as documented, Reports as per HPI and Reports cough Gastrointestinal Gastrointestingal: Reports system reviewed and no additional complaints, except as documented and as per HPI Neurologic Neurol
[2022-04-11 12:27] LABS: UTC Influenza B Antigen Negative (Negative)
[2022-04-11 12:34] VITALS: BP 117/76; PULSE 87; RESP 20; TEMP 36.9; O2SAT 97
== END 2022-04-11 12:49 | disposition home or self-care (01) ==
PROVIDERS: Emergency Provider Nurse Practitioner; PCP Physician Assistant
DX: R06.02 Shortness of breath (principal); J06.9 Acute upper respiratory infection, unspecified; R50.9 Fever, unspecified; R05.9 Cough, unspecified; R51.9 Headache, unspecified; R09.89 Other specified symptoms and signs involving the circulatory and respiratory systems; J45.909 Unspecified asthma, uncomplicated; F32.A Depression, unspecified; F41.9 Anxiety disorder, unspecified; F17.210 Nicotine dependence, cigarettes, uncomplicated; Z88.8 Allergy status to other drugs, medicaments and biological substances; Z87.442 Personal history of urinary calculi; Z87.440 Personal history of urinary (tract) infections
CPT/HCPCS: 87804; 99213; G0463